=== PATIENT | female | born 1985 | race Caucasian/White ===

== ENCOUNTER → 2016-09-01 | Outpatient (CLI) | payer OTHER ==
[2016-09-01 08:58] LABS: ESTRADIOL 225.5 PG/ML; PROGESTERONE 0.4 NG/ML
== END ==
LOC: M LAB 07:32
PROVIDERS: ATTEND Obstetrics & Gynecology Reproductive Endocrinology
DX: Z31.89 Encounter for other procreative management (principal)

== ENCOUNTER → 2016-09-06 | Outpatient (REF) | payer OTHER | LOC: M LAB REF 12:39 | PROVIDERS: ATTEND Physician Assistant | DX: N39.0 Urinary tract infection, site not specified (principal) ==

== ENCOUNTER → 2016-10-02 | Outpatient (CLI) | payer OTHER ==
[2016-10-02 07:36] LABS: HCG, SERUM QUANTITATIVE < 1.0 MIU/ML
[2016-10-02 10:54] LABS: PROGESTERONE 10.5 NG/ML
[2016-10-02 11:05] LABS: ESTRADIOL 332.8 PG/ML
== END ==
LOC: M LAB 06:27
PROVIDERS: ATTEND Obstetrics & Gynecology Reproductive Endocrinology
DX: Z31.41 Encounter for fertility testing (principal)

== ENCOUNTER → 2017-01-16 | Outpatient (CLI) | payer OTHER ==
[2017-01-16 10:25] LABS: THYROXINE (T4) 8.5 UG/DL (4.5-12.0)
[2017-01-16 10:28] LABS: ESTRADIOL 67.6 PG/ML; PROGESTERONE 0.5 NG/ML; PROLACTIN 3.8 NG/ML
== END ==
LOC: M LAB 09:24
PROVIDERS: ATTEND Advanced Practice Midwife
DX: N91.1 Secondary amenorrhea (principal)

== ENCOUNTER → 2017-01-30 | Outpatient (CLI) | payer OTHER ==
[2017-01-30 08:44] LABS: LUTEINIZING HORMONE 2.4 mIU/mL
[2017-01-30 08:45] LABS: FOLLICLE STIMULATING HORMONE 2.4 mIU/mL
== END ==
LOC: M LAB 06:35
PROVIDERS: ATTEND Advanced Practice Midwife
DX: N91.1 Secondary amenorrhea (principal)

== ENCOUNTER → 2017-03-09 | Outpatient (CLI) | payer OTHER ==
[2017-03-09 14:37] LABS: BASO % 0.5 % (0.0-1.0); EOS % 0.5 % (0.0-3.0); LARGE UNSTAINED CELL # 0.1 K/mm3 (0.0-0.4); LARGE UNSTAINED CELL % 2.1 % (0.0-4.0); LYMPH # 1.8 K/mm3 (1.5-4.5); LYMPH % 28.1 % (24.0-44.0); MEAN CORPUSCULAR HEMOGLOBIN 30.8 pg (27.0-33.0); MEAN CORPUSCULAR VOLUME 90.7 fl (80.0-96.0); MONO # 0.2 K/mm3 (0.0-0.8); MONO % 3.6 % (0.0-5.0); NEUTROPHILS # 4.2 K/mm3 (1.8-7.7); NEUTROPHILS % 65.2 % (36.0-66.0); PLATELET COUNT, AUTOMATED 237 k/mm3 (150-450); RED CELL DISTRIBUTION WIDTH 13.2 % (11.5-14.5); WHITE BLOOD COUNT 6.5 K/mm3 (4.0-10.0)
[2017-03-09 15:18] LABS: HBsAg Prenatal NEGATIVE (NEGATIVE)
== END ==
LOC: M LAB 13:32
PROVIDERS: ATTEND Obstetrics & Gynecology
DX: Z34.81 Encounter for supervision of other normal pregnancy, first trimester (principal)

== ENCOUNTER → 2017-03-12 | Outpatient (CLI) | payer OTHER | LOC: M LAB 08:52 | PROVIDERS: ATTEND Advanced Practice Midwife | DX: N91.1 Secondary amenorrhea (principal) ==

== ENCOUNTER → 2017-03-22 | Outpatient (CLI) | payer OTHER | LOC: M SMT 09:36 | PROVIDERS: ATTEND Advanced Practice Midwife | DX: N96 Recurrent pregnancy loss (principal) ==

== ENCOUNTER → 2017-04-24 | Outpatient (CLI) | payer OTHER ==
[2017-04-24 15:15] LABS: FOLLICLE STIMULATING HORMONE < 0.3 mIU/mL; LUTEINIZING HORMONE < 0.1 mIU/mL
[2017-04-24 15:21] LABS: ALBUMIN 3.9 GM/DL (3.2-5.2); ALKALINE PHOSPHATASE 67 U/L (45-117); ALT/SGPT 25 U/L (12-78); ANION GAP 10 MEQ/L (8-16); AST/SGOT 12 U/L (15-37); BILIRUBIN,TOTAL 0.4 MG/DL (0.2-1.0); BLOOD UREA NITROGEN 10 MG/DL (7-18); CALCIUM LEVEL 8.8 MG/DL (8.5-10.1); CARBON DIOXIDE LEVEL 25 MEQ/L (21-32); CHLORIDE LEVEL 106 MEQ/L (98-107); CREATININE FOR GFR 0.81 MG/DL (0.55-1.02); FREE T4 0.95 NG/DL (0.76-1.46); GLOMERULAR FILTRATION RATE > 60.0 (>60); GLUCOSE, FASTING 89 MG/DL (70-105); POTASSIUM SERUM 3.6 MEQ/L (3.5-5.1); SODIUM LEVEL 141 MEQ/L (136-145); TOTAL PROTEIN 7.8 GM/DL (6.4-8.2)
[2017-04-24 15:56] LABS: BASO % 0.3 % (0.0-1.0); EOS % 0.5 % (0.0-3.0); LARGE UNSTAINED CELL # 0.2 K/mm3 (0.0-0.4); LARGE UNSTAINED CELL % 1.6 % (0.0-4.0); LYMPH # 2.3 K/mm3 (1.5-4.5); MEAN CORPUSCULAR HEMOGLOBIN 30.8 pg (27.0-33.0); MEAN CORPUSCULAR HGB CONC 34.3 g/dl (32.0-36.5); MEAN CORPUSCULAR VOLUME 89.7 fl (80.0-96.0); MONO # 0.3 K/mm3 (0.0-0.8); MONO % 3.4 % (0.0-5.0); NEUTROPHILS # 7.1 K/mm3 (1.8-7.7); NEUTROPHILS % 71.3 % (36.0-66.0); PLATELET COUNT, AUTOMATED 244 k/mm3 (150-450); RED CELL DISTRIBUTION WIDTH 12.9 % (11.5-14.5); WHITE BLOOD COUNT 9.9 K/mm3 (4.0-10.0)
[2017-04-25 11:52] LABS: THYROID PEROXIDASE ANTIBODY 28.6 U/ML (<60.0)
== END ==
LOC: M LAB 13:16
PROVIDERS: ATTEND Physician Assistant Medical
DX: R53.82 Chronic fatigue, unspecified (principal); L65.9 Nonscarring hair loss, unspecified; N92.6 Irregular menstruation, unspecified; M79.1 Myalgia

== ENCOUNTER → 2017-07-09 | Outpatient (CLI) | payer OTHER ==
[2017-07-09 10:09] LABS: PROGESTERONE 13.7 NG/ML
== END ==
LOC: M LAB 06:24
PROVIDERS: ATTEND Obstetrics & Gynecology Reproductive Endocrinology
DX: Z31.89 Encounter for other procreative management (principal)

== ENCOUNTER → 2017-07-11 | Outpatient (CLI) | payer OTHER ==
[2017-07-11 09:29] LABS: PROGESTERONE 9.2 NG/ML
[2017-07-11 09:30] LABS: ESTRADIOL 431.6 PG/ML
== END ==
LOC: M LAB 06:19
PROVIDERS: ATTEND Obstetrics & Gynecology Reproductive Endocrinology
DX: Z31.89 Encounter for other procreative management (principal)

== ENCOUNTER 2017-08-28 17:42 | Emergency (ER) | payer OTHER ==
[2017-08-28] MEDS: NS 1,000 ML IV (18:00)
[2017-08-28 18:30] LABS: BASO % 0.2 % (0.0-1.0); EOS # 0.1 10^3/uL (0.0-0.50); EOS % 0.5 % (0.0-3.0); HEMATOCRIT 41.3 % (36.0-47.0); HEMOGLOBIN 14.2 g/dl (12.0-16.0); IMMATURE GRANULOCYTE % 0.3 % (0-0); LYMPH # 2.1 10^3/uL (1.5-4.5); LYMPH % 21.2 % (24.0-44.0); MEAN CORPUSCULAR HEMOGLOBIN 30.3 pg (27.0-33.0); MEAN CORPUSCULAR HGB CONC 34.4 g/dl (32.0-36.5); MEAN CORPUSCULAR VOLUME 88.1 fl (80.0-96.0); MONO # 0.4 10^3/uL (0.0-0.8); NEUTROPHILS # 7.3 10^3/uL (1.8-7.7); NEUTROPHILS % 73.8 % (36.0-66.0); PLATELET COUNT, AUTOMATED 215 10^3/uL (150-450); RED BLOOD COUNT 4.69 10^6/uL (4.00-5.40); RED CELL DISTRIBUTION WIDTH 12.9 % (11.5-14.5); WHITE BLOOD COUNT 9.9 10^3/uL (4.0-10.0)
[2017-08-28 18:50] LABS: ANION GAP 7 MEQ/L (8-16); BLOOD UREA NITROGEN 8 MG/DL (7-18); CARBON DIOXIDE LEVEL 25 MEQ/L (21-32); CHLORIDE LEVEL 106 MEQ/L (98-107); CREATININE FOR GFR 0.62 MG/DL (0.55-1.02); GLOMERULAR FILTRATION RATE > 60.0 (>60); GLUCOSE, FASTING 111 MG/DL (70-105); POTASSIUM SERUM 3.4 MEQ/L (3.5-5.1); SODIUM LEVEL 138 MEQ/L (136-145)
[2017-08-28 19:07] LABS: HCG, SERUM QUANTITATIVE 113178 MIU/ML
[2017-08-28 19:49] LABS: KETONE, URINE AUTO RFX NEGATIVE (NEGATIVE); LEUKOCYTE ESTERASE UR AUTO RFX NEGATIVE (NEGATIVE); NITRITE, URINE AUTO RFX NEGATIVE (NEGATIVE); RBC, URINE AUTO RFX 5 /HPF (0-3); SPECIFIC GRAVITY UR AUTO RFX 1.005 (1.002-1.035); SQUAM EPITHELIAL CELL UR AURFX 0 /HPF (0-6); WBC, URINE AUTO RFX 1 /HPF (0-3)
== END 2017-08-28 20:19 | disposition home or self-care (01) ==
LOC: M ED 17:42
DX: O20.9 Hemorrhage in early pregnancy, unspecified (principal); Z3A.11 11 weeks gestation of pregnancy; O09.811 Supervision of pregnancy resulting from assisted reproductive technology, first trimester
CPT/HCPCS: 76801

== ENCOUNTER → 2017-09-07 | Outpatient (CLI) | payer OTHER ==
[2017-09-07 13:50] LABS: BASO % 0.2 % (0.0-1.0); EOS % 0.1 % (0.0-3.0); HEMATOCRIT 39.9 % (36.0-47.0); HEMOGLOBIN 13.4 g/dl (12.0-16.0); IMMATURE GRANULOCYTE % 0.4 % (0-0); LYMPH # 1.4 10^3/uL (1.5-4.5); LYMPH % 16.4 % (24.0-44.0); MEAN CORPUSCULAR HEMOGLOBIN 30.2 pg (27.0-33.0); MEAN CORPUSCULAR HGB CONC 33.6 g/dl (32.0-36.5); MEAN CORPUSCULAR VOLUME 90.1 fl (80.0-96.0); MONO # 0.3 10^3/uL (0.0-0.8); MONO % 3.8 % (0.0-5.0); NEUTROPHILS # 6.7 10^3/uL (1.8-7.7); NEUTROPHILS % 79.1 % (36.0-66.0); PLATELET COUNT, AUTOMATED 222 10^3/uL (150-450); RED BLOOD COUNT 4.43 10^6/uL (4.00-5.40); RED CELL DISTRIBUTION WIDTH 12.8 % (11.5-14.5); WHITE BLOOD COUNT 8.5 10^3/uL (4.0-10.0)
[2017-09-07 14:25] LABS: ALT/SGPT 15 U/L (12-78); AST/SGOT 10 U/L (7-37); BILIRUBIN,TOTAL 0.4 MG/DL (0.2-1.0); CREATININE FOR GFR 0.62 MG/DL (0.55-1.02); FREE T4 1.05 NG/DL (0.76-1.46); GLOMERULAR FILTRATION RATE > 60.0 (>60); LDH LACTATE DEHYDROGENASE 142 U/L (84-246); URIC ACID 3.3 MG/DL (2.6-6.0)
[2017-09-07 14:39] LABS: CREATININE,RANDOM URINE 92.5 MG/DL
[2017-09-07 14:39] LABS: TOTAL PROTEIN,RANDOM URINE 6.7 MG/DL (0.0-12.0)
[2017-09-07 15:22] LABS: CHLAMYDIA DNA AMPLIFICATION NEGATIVE (NEGATIVE); GC DNA AMPLIFICATION NEGATIVE (NEGATIVE)
[2017-09-07 17:38] LABS: RUBELLA IgG QUALITATIVE IMMUNE (IMMUNE)
[2017-09-07 18:07] LABS: HBsAg Prenatal NEGATIVE (NEGATIVE)
[2017-09-07 18:13] LABS: HEPATITIS C VIRUS ABY INDEX 0.1 INDEX (<0.8)
[2017-09-07 18:13] LABS: HIV 1&2 SCREEN CENTAUR NEGATIVE (NEGATIVE)
== END ==
LOC: M SMT 09:53
DX: Z36.89 Encounter for other specified antenatal screening (principal); Z3A.12 12 weeks gestation of pregnancy
CPT/HCPCS: 84460

== ENCOUNTER → 2017-10-18 | Outpatient (CLI) | payer OTHER | LOC: M RAD 07:36 | DX: Z36.89 Encounter for other specified antenatal screening (principal); Z3A.18 18 weeks gestation of pregnancy | CPT/HCPCS: 76811 ==

== ENCOUNTER → 2017-11-01 | Outpatient (CLI) | payer OTHER | LOC: M RAD 11:40 | DX: Z34.82 Encounter for supervision of other normal pregnancy, second trimester (principal); Z3A.20 20 weeks gestation of pregnancy ==

== ENCOUNTER → 2017-12-17 | Outpatient (CLI) | payer OTHER ==
[2017-12-17 10:21] LABS: HEMATOCRIT 38.6 % (36.0-47.0); MEAN CORPUSCULAR HEMOGLOBIN 31.4 pg (27.0-33.0); MEAN CORPUSCULAR HGB CONC 33.7 g/dl (32.0-36.5); MEAN CORPUSCULAR VOLUME 93.2 fl (80.0-96.0); PLATELET COUNT, AUTOMATED 204 10^3/uL (150-450); RED BLOOD COUNT 4.14 10^6/uL (4.00-5.40); RED CELL DISTRIBUTION WIDTH 13.8 % (11.5-14.5); WHITE BLOOD COUNT 13.4 10^3/uL (4.0-10.0)
[2017-12-17 10:56] LABS: GLUCOSE CHALLENGE TEST 1 HOUR 121 MG/DL (LESS THAN 140)
== END ==
LOC: M LAB 08:45
DX: Z34.82 Encounter for supervision of other normal pregnancy, second trimester (principal); Z3A.00 Weeks of gestation of pregnancy not specified
CPT/HCPCS: 82950

== ENCOUNTER → 2018-01-12 | Outpatient (CLI) | payer OTHER ==
[2018-01-12 16:54] LABS: HEMATOCRIT 34.4 % (36.0-47.0); HEMOGLOBIN 11.2 g/dl (12.0-15.5); MEAN CORPUSCULAR HEMOGLOBIN 31.2 pg (27.0-33.0); MEAN CORPUSCULAR HGB CONC 32.6 g/dl (32.0-36.5); MEAN CORPUSCULAR VOLUME 95.8 fl (80.0-96.0); PLATELET COUNT, AUTOMATED 175 10^3/uL (150-450); RED BLOOD COUNT 3.59 10^6/uL (4.00-5.40); RED CELL DISTRIBUTION WIDTH 13.5 % (11.5-14.5); WHITE BLOOD COUNT 10.9 10^3/uL (4.0-10.0)
[2018-01-12 17:07] LABS: ALBUMIN 2.4 GM/DL (3.2-5.2); ALBUMIN/GLOBULIN RATIO 0.67 (1.00-1.93); ALKALINE PHOSPHATASE 104 U/L (45-117); ALT/SGPT 21 U/L (12-78); ANION GAP 10 MEQ/L (8-16); AST/SGOT 17 U/L (7-37); BILIRUBIN,TOTAL 0.2 MG/DL (0.2-1.0); BLOOD UREA NITROGEN 9 MG/DL (7-18); CALCIUM LEVEL 8.3 MG/DL (8.5-10.1); CARBON DIOXIDE LEVEL 21 MEQ/L (21-32); CHLORIDE LEVEL 108 MEQ/L (98-107); CREATININE FOR GFR 0.64 MG/DL (0.55-1.30); GLOMERULAR FILTRATION RATE > 60.0 (>60); GLUCOSE, FASTING 150 MG/DL (70-100); POTASSIUM SERUM 3.9 MEQ/L (3.5-5.1); SODIUM LEVEL 139 MEQ/L (136-145); URIC ACID 3.2 MG/DL (2.6-6.0)
[2018-01-12 17:18] LABS: TOTAL PROTEIN,RANDOM URINE 31.4 MG/DL (0.0-12.0)
== END ==
LOC: M ADAMS 09:43
DX: Z36.89 Encounter for other specified antenatal screening (principal); Z3A.00 Weeks of gestation of pregnancy not specified
CPT/HCPCS: 84550

== ENCOUNTER 2018-01-15 23:07 | Inpatient (IN) | payer OTHER ==
[2018-01-16] MEDS: LR 1,000 ML IV ×3 (00:38→16:38)
[2018-01-16] MEDS: LACTATED RINGER'S 1000 ML IV (00:38)
[2018-01-16] MEDS ORDERED: ONDANSETRON 4MG/2ML VIAL (J2405) IV (00:45)
[2018-01-16 00:54] LABS: BASO % 0.2 % (0.0-1.0); EOS # 0.1 10^3/uL (0.0-0.50); EOS % 0.3 % (0.0-3.0); HEMATOCRIT 34.1 % (36.0-47.0); HEMOGLOBIN 11.7 g/dl (12.0-15.5); IMMATURE GRANULOCYTE % 0.9 % (0-3.0); LYMPH # 2.4 10^3/uL (1.5-4.5); LYMPH % 16.5 % (24.0-44.0); MEAN CORPUSCULAR HEMOGLOBIN 31.2 pg (27.0-33.0); MEAN CORPUSCULAR HGB CONC 34.3 g/dl (32.0-36.5); MEAN CORPUSCULAR VOLUME 90.9 fl (80.0-96.0); MONO # 0.9 10^3/uL (0.0-0.8); NEUTROPHILS % 76.1 % (36.0-66.0); PLATELET COUNT, AUTOMATED 174 10^3/uL (150-450); RED BLOOD COUNT 3.75 10^6/uL (4.00-5.40); RED CELL DISTRIBUTION WIDTH 13.1 % (11.5-14.5); WHITE BLOOD COUNT 14.4 10^3/uL (4.0-10.0)
[2018-01-16] MEDS: MAG Sulf (OBGYN) 20GM/500ML 20,000 MG in APPROPRIATE DILUENT 1 EA IV ×3 (00:58→20:58)
[2018-01-16] MEDS: MAG Sulf (L&D) 4 GM/100 ML 4 GM in APPROPRIATE DILUENT 1 EA IV (01:11)
[2018-01-16] MEDS: NIFEdipine 10 MG CAP PO ×2 (01:12→02:10)
[2018-01-16] MEDS: BETAMETHASONE SOLUSPAN 6MG/ML INJ 5ML (J0702) IM (01:15)
[2018-01-16] MEDS: PENICILLIN G POTASSIUM IV 5 MU in D5W MINI-BAG PLUS 100 ML IV (01:15)
[2018-01-16] MEDS: CALCIUM CARBONATE 500 MG CHEW U/D PO ×3 (02:06→13:50)
[2018-01-16] MEDS: PENICILLIN G POTASSIUM IV 2.5 MU in APPROPRIATE DILUENT 1 EA IV ×5 (05:00→21:00)
[2018-01-16] MEDS: ACETAMINOPHEN 500 MG TAB PO ×2 (08:15→14:50)
[2018-01-17] MEDS: BETAMETHASONE SOLUSPAN 6MG/ML INJ 5ML (J0702) IM (00:45)
[2018-01-17] MEDS: PENICILLIN G POTASSIUM IV 2.5 MU in APPROPRIATE DILUENT 1 EA IV ×3 (01:00→09:39)
[2018-01-17] MEDS: MAG Sulf (OBGYN) 20GM/500ML 20,000 MG in APPROPRIATE DILUENT 1 EA IV (05:47)
[2018-01-17] MEDS: CALCIUM CARBONATE 500 MG CHEW U/D PO (10:10)
== END 2018-01-17 12:50 | disposition home or self-care (01) | DRG 775 ==
LOC: M LDO 23:07 → M LDI 01-16 00:37
PROVIDERS: Advanced Practice Midwife
DX: O60.14X0 Preterm labor third trimester with preterm delivery third trimester, not applicable or unspecified (principal); Z3A.31 31 weeks gestation of pregnancy; O34.211 Maternal care for low transverse scar from previous cesarean delivery

== ENCOUNTER 2018-02-02 07:02 | Outpatient (CLI) | payer OTHER ==
[2018-02-02] MEDS: LR 1,000 ML IV ×2 (09:20→17:52)
[2018-02-02] MEDS: TERBUTALINE SULFATE 1 MG/ML VIAL (J3105) SC (12:19)
[2018-02-02 12:45] LABS: HEMATOCRIT 34.1 % (36.0-47.0); HEMOGLOBIN 11.3 g/dl (12.0-15.5); MEAN CORPUSCULAR HEMOGLOBIN 30.4 pg (27.0-33.0); MEAN CORPUSCULAR HGB CONC 33.1 g/dl (32.0-36.5); MEAN CORPUSCULAR VOLUME 91.7 fl (80.0-96.0); PLATELET COUNT, AUTOMATED 141 10^3/uL (150-450); RED BLOOD COUNT 3.72 10^6/uL (4.00-5.40); RED CELL DISTRIBUTION WIDTH 13.8 % (11.5-14.5); WHITE BLOOD COUNT 9.1 10^3/uL (4.0-10.0)
[2018-02-02 12:46] LABS: APPEARANCE, URINE CLEAR (CLEAR); BACTERIA, URINE AUTO NEGATIVE (NEGATIVE); BILIRUBIN, URINE AUTO NEGATIVE (NEGATIVE); BLOOD, URINE BLOOD NEGATIVE (NEGATIVE); COLOR, URINE STRAW (YELLOW); GLUCOSE, URINE (UA) AUTO 1+ mg/dL (NEGATIVE); KETONE, URINE AUTO NEGATIVE (NEGATIVE); LEUKOCYTE ESTERASE, URINE AUTO 1+ (NEGATIVE); NITRITE, URINE AUTO NEGATIVE (NEGATIVE); PROTEIN, URINE AUTO NEGATIVE (NEGATIVE); RBC, URINE AUTO 0 /HPF (0-3); SPECIFIC GRAVITY URINE AUTO 1.009 (1.002-1.035); SQUAMOUS EPITHELIAL CELL UR AU 2 /HPF (0-6); UROBILINOGEN, URINE AUTO 0.2 mg/dL (0.0-2.0); WBC, URINE AUTO 10 /HPF (0-3)
[2018-02-02 12:58] LABS: ALT/SGPT 20 U/L (12-78); AST/SGOT 14 U/L (7-37); BILIRUBIN,TOTAL 0.2 MG/DL (0.2-1.0); CREATININE FOR GFR 0.68 MG/DL (0.55-1.30); GLOMERULAR FILTRATION RATE > 60.0 (>60); LDH LACTATE DEHYDROGENASE 169 U/L (84-246); URIC ACID 4.2 MG/DL (2.6-6.0)
[2018-02-02] MEDS: cefTRIAXone SOD 1 GM in D5W MINI-BAG PLUS 50 ML IV (13:54)
[2018-02-02] MEDS: CALCIUM CARBONATE 500 MG CHEW U/D PO (16:30)
[2018-02-02] MEDS: raNITIdine SYRUP 150 MG/10 ML UDC PO (20:07)
[2018-02-03] MEDS: LR 1,000 ML IV (01:54)
== END 2018-02-03 08:58 | disposition home or self-care (01) ==
LOC: M LDO 07:02
DX: O47.03 False labor before 37 completed weeks of gestation, third trimester (principal); Z3A.34 34 weeks gestation of pregnancy
CPT/HCPCS: J3105

== ENCOUNTER → 2018-02-07 | Outpatient (CLI) | payer OTHER | LOC: M RAD 09:31 | DX: O13.3 Gestational [pregnancy-induced] hypertension without significant proteinuria, third trimester (principal) ==

== ENCOUNTER 2018-02-10 18:05 | Outpatient (CLI) | payer OTHER | END 2018-02-10 19:40 | disposition home or self-care (01) | LOC: M LDO 18:05 | DX: O26.893 Other specified pregnancy related conditions, third trimester (principal); N89.8 Other specified noninflammatory disorders of vagina; Z3A.35 35 weeks gestation of pregnancy | CPT/HCPCS: 59025 ==

== ENCOUNTER → 2018-02-12 | Outpatient (REF) | payer OTHER | LOC: M LAB REF 13:02 | DX: Z34.83 Encounter for supervision of other normal pregnancy, third trimester (principal); Z3A.00 Weeks of gestation of pregnancy not specified ==

== ENCOUNTER 2018-02-13 17:00 | Outpatient (CLI) | payer OTHER ==
[2018-02-13 18:14] LABS: HEMATOCRIT 31.2 % (36.0-47.0); HEMOGLOBIN 10.3 g/dl (12.0-15.5); MEAN CORPUSCULAR HEMOGLOBIN 29.1 pg (27.0-33.0); MEAN CORPUSCULAR VOLUME 88.1 fl (80.0-96.0); PLATELET COUNT, AUTOMATED 161 10^3/uL (150-450); RED BLOOD COUNT 3.54 10^6/uL (4.00-5.40); RED CELL DISTRIBUTION WIDTH 13.9 % (11.5-14.5); WHITE BLOOD COUNT 10.1 10^3/uL (4.0-10.0)
[2018-02-13 18:30] LABS: TOTAL PROTEIN,RANDOM URINE 35.6 MG/DL (0.0-12.0)
[2018-02-13 18:30] LABS: CREATININE,RANDOM URINE 91.9 MG/DL
[2018-02-13 18:42] LABS: ALT/SGPT 23 U/L (12-78); AST/SGOT 15 U/L (7-37); BILIRUBIN,TOTAL 0.1 MG/DL (0.2-1.0); CREATININE FOR GFR 0.68 MG/DL (0.55-1.30); GLOMERULAR FILTRATION RATE > 60.0 (>60); LDH LACTATE DEHYDROGENASE 178 U/L (84-246); URIC ACID 4.7 MG/DL (2.6-6.0)
== END 2018-02-13 21:05 | disposition home or self-care (01) ==
LOC: M LDO 17:00
DX: O16.3 Unspecified maternal hypertension, third trimester (principal); O12.03 Gestational edema, third trimester; O26.893 Other specified pregnancy related conditions, third trimester; R51 Headache; Z3A.35 35 weeks gestation of pregnancy
CPT/HCPCS: 76815

== ENCOUNTER 2018-02-15 13:28 | Inpatient (IN) | payer OTHER ==
[2018-02-15] MEDS ORDERED: LR 1,000 ML IV (13:48)
[2018-02-15 14:21] LABS: HEMATOCRIT 32.1 % (36.0-47.0); HEMOGLOBIN 10.6 g/dl (12.0-15.5); MEAN CORPUSCULAR HEMOGLOBIN 29.5 pg (27.0-33.0); MEAN CORPUSCULAR VOLUME 89.4 fl (80.0-96.0); PLATELET COUNT, AUTOMATED 164 10^3/uL (150-450); RED BLOOD COUNT 3.59 10^6/uL (4.00-5.40); RED CELL DISTRIBUTION WIDTH 14.2 % (11.5-14.5); WHITE BLOOD COUNT 10.7 10^3/uL (4.0-10.0)
[2018-02-15 15:00] LABS: ALT/SGPT 25 U/L (12-78); AST/SGOT 24 U/L (7-37); BILIRUBIN,TOTAL 0.1 MG/DL (0.2-1.0); CREATININE FOR GFR 0.72 MG/DL (0.55-1.30); GLOMERULAR FILTRATION RATE > 60.0 (>60); LDH LACTATE DEHYDROGENASE 264 U/L (84-246)
[2018-02-15] MEDS: OXYTOCIN DRIP 30 UNITS in APPROPRIATE DILUENT 1 EA IV ×2 (16:38→22:14)
[2018-02-15] MEDS: LACTATED RINGER'S 1000 ML IV (16:38)
[2018-02-15] MEDS ORDERED: DOCUSATE SODIUM 100 MG CAP PO (21:15)
[2018-02-15] MEDS ORDERED: ONDANSETRON 4MG/2ML VIAL (J2405) IV (21:15)
[2018-02-15] MEDS ORDERED: RHOGAM 300 MCG (1500 IU) INJ (J2790) IM (21:15)
[2018-02-15] MEDS ORDERED: PROMETHAZINE 25 MG TAB PO (21:15)
[2018-02-15] MEDS ORDERED: DIBUCAINE 1% OINTMENT 30GM TOP (21:15)
[2018-02-15] MEDS ORDERED: MEASLES,MUMPS,RUBELLA VACCINE INJ (MMR-II) (90707) SC (21:15)
[2018-02-15] MEDS: LR 1,000 ML IV (22:14)
[2018-02-15] MEDS: LIDOCAINE 1% MDV 20ML VIAL INFIL (22:14)
[2018-02-16] MEDS ORDERED: OXYTOCIN INJ 10 UNITS/ML VIAL (J2590) As Ordered (01:39)
[2018-02-16] MEDS: LR 1,000 ML IV ×2 (05:01→13:01)
[2018-02-16] MEDS: IBUPROFEN 800 MG TAB PO ×2 (06:14→18:00)
[2018-02-16] MEDS: PRENATAL VITAMINS CHEWABLE TABLET PO (08:25)
[2018-02-16] MEDS: ACETAMINOPHEN 500 MG TAB PO (13:30)
[2018-02-17] MEDS: PRENATAL VITAMINS CHEWABLE TABLET PO (10:05)
== END 2018-02-17 17:33 | disposition home or self-care (01) | DRG 775 ==
LOC: M LDI 13:28 → M OBS 23:27
PROC: 10E0XZZ Delivery of Products of Conception, External Approach (ICD-10-PCS; principal; 2018-02-15)
PROC: 0HQ9XZZ Repair Perineum Skin, External Approach (ICD-10-PCS; 2018-02-15)
DX: O14.14 Severe pre-eclampsia complicating childbirth (principal); Z37.0 Single live birth; Z3A.35 35 weeks gestation of pregnancy; O34.211 Maternal care for low transverse scar from previous cesarean delivery; O60.14X0 Preterm labor third trimester with preterm delivery third trimester, not applicable or unspecified; O70.0 First degree perineal laceration during delivery

== ENCOUNTER → 2018-02-15 | Outpatient (REF) | payer OTHER ==
[2018-02-15 13:03] LABS: URINE TOTAL PROTEIN 19.1 MG/DL (0-12)
[2018-02-15 20:10] LABS: TOTAL PROTEIN 24 HOUR URINE 429.7 MG/24HR (50-150)
[2018-02-18 09:31] LABS: TOTAL VOLUME, URINE 2250 ML
== END ==
LOC: M LAB REF 12:28
DX: O13.3 Gestational [pregnancy-induced] hypertension without significant proteinuria, third trimester (principal)

== ENCOUNTER → 2019-04-25 | Outpatient (CLI) | payer OTHER ==
[~2019-04-25] MED LIST: MAPA500T2 PO; PRENTAB55 PO; PROC10CA PO; RANI-356 PO; TUMS500C PO; TYLE500T78 PO
--- NOTE | 2019-04-25 14:23 | REP ---
Pelvic ultrasound for abnormal bleeding: The study is performed with transabdominal and endovaginal ultrasound assessment. The bladder is adequately distended. The uterus is anteverted and normal size measuring 9.2 x 3.7 x 5.0 cm. The myometrium is unremarkable. The endometrium is not thickened measuring 6.2 mm. Right ovary: The right ovary measures 2.0 x 1.1 x 2.0 cm and is normal size. There is no dominant mass or cyst. Left ovary: The left ovary measures 1.7 x 1.5 x 1.6 cm and is normal size. There is no dominant mass or cyst. There is no free fluid in the pelvis. Impression: Essentially negative pelvic ultrasound. Electronically Signed by Roderick Garcia MD 04/25/2019 02:15 P
== END ==
LOC: M RAD 10:44
PROVIDERS: ATTEND Obstetrics & Gynecology
DX: N93.9 Abnormal uterine and vaginal bleeding, unspecified (principal)

== ENCOUNTER → 2019-05-06 | Outpatient (REF) | payer OTHER ==
[2019-05-09 14:42] LABS: HPV HYBRID CAPTURE II Negative (Negative)
== END ==
LOC: M LAB REF 14:54
PROVIDERS: ATTEND Obstetrics & Gynecology
DX: Z12.4 Encounter for screening for malignant neoplasm of cervix (principal)
CPT/HCPCS: 87624; G0123

== ENCOUNTER → 2019-06-07 | Outpatient (CLI) | payer OTHER ==
[2019-06-07 10:47] LABS: BASO % 0.2 % (0.0-1.0); EOS # 0.1 10^3/uL (0.0-0.5); EOS % 1.5 % (0.0-3.0); HEMATOCRIT 42.4 % (36.0-47.0); HEMOGLOBIN 14.1 g/dl (12.0-15.5); LYMPH # 1.6 10^3/uL (1.5-5.0); LYMPH % 33.7 % (24.0-44.0); MEAN CORPUSCULAR HEMOGLOBIN 29.3 pg (27.0-33.0); MEAN CORPUSCULAR HGB CONC 33.3 g/dl (32.0-36.5); MEAN CORPUSCULAR VOLUME 88.1 fl (80.0-96.0); MONO # 0.3 10^3/uL (0.0-0.8); MONO % 5.5 % (0.0-5.0); NEUTROPHILS # 2.8 10^3/uL (1.5-8.5); NEUTROPHILS % 58.9 % (36.0-66.0); PLATELET COUNT, AUTOMATED 195 10^3/uL (150-450); RED BLOOD COUNT 4.81 10^6/uL (4.00-5.40); WHITE BLOOD COUNT 4.8 10^3/uL (4.0-10.0)
[2019-06-07 11:14] LABS: BLOOD UREA NITROGEN 9 MG/DL (7-18); CALCIUM LEVEL 9.1 MG/DL (8.5-10.1); CARBON DIOXIDE LEVEL 27 MEQ/L (21-32); CHLORIDE LEVEL 107 MEQ/L (98-107); CREATININE FOR GFR 0.74 MG/DL (0.55-1.30); FREE T4 0.89 NG/DL (0.76-1.46); GLOMERULAR FILTRATION RATE > 60.0 (>60); GLUCOSE, FASTING 80 MG/DL (70-100); MAGNESIUM LEVEL 1.8 MG/DL (1.8-2.4); SODIUM LEVEL 141 MEQ/L (136-145)
== END ==
LOC: M LAB 10:13
PROVIDERS: ATTEND Physician Assistant
DX: R00.2 Palpitations (principal); Z83.2 Family history of diseases of the blood and blood-forming organs and certain disorders involving the immune mechanism

== ENCOUNTER → 2019-06-23 | Outpatient (REF) | payer OTHER | LOC: M LAB REF 12:54 | PROVIDERS: ATTEND Obstetrics & Gynecology | DX: N85.00 Endometrial hyperplasia, unspecified (principal) ==

== ENCOUNTER → 2020-01-23 | Outpatient (REF) | payer OTHER ==
[~2020-01-23] MED LIST changes: -RANI-356 PO; +RANI-397 PO
[2020-01-23 13:00] LABS: HEMATOCRIT 40.9 % (36.0-47.0); HEMOGLOBIN 13.8 g/dl (12.0-15.5); MEAN CORPUSCULAR HEMOGLOBIN 30.9 pg (27.0-33.0); MEAN CORPUSCULAR HGB CONC 33.7 g/dl (32.0-36.5); MEAN CORPUSCULAR VOLUME 91.5 fl (80.0-96.0); PLATELET COUNT, AUTOMATED 226 10^3/uL (150-450); RED BLOOD COUNT 4.47 10^6/uL (4.00-5.40); WHITE BLOOD COUNT 10.4 10^3/uL (4.0-10.0)
[2020-01-23 13:43] LABS: ALT/SGPT 44 U/L (12-78); BILIRUBIN,TOTAL 0.5 MG/DL (0.2-1.0); CREATININE FOR GFR 0.74 MG/DL (0.55-1.30); GLOMERULAR FILTRATION RATE > 60.0 (>60); LDH LACTATE DEHYDROGENASE 144 U/L (84-246); URIC ACID 3.2 MG/DL (2.6-6.0)
[2020-01-23 14:24] LABS: HEPATITIS C VIRUS ABY INDEX 0.1 INDEX (<0.8)
[2020-01-23 14:25] LABS: HIV 1&2 SCREEN CENTAUR NEGATIVE (NEGATIVE)
[2020-01-23 14:36] LABS: TOTAL PROTEIN,RANDOM URINE 10.1 MG/DL (0.0-12.0)
[2020-01-23 15:13] LABS: CHLAMYDIA DNA AMPLIFICATION NEGATIVE (NEGATIVE); GC DNA AMPLIFICATION NEGATIVE (NEGATIVE)
== END ==
LOC: M PLALAB 10:35
PROVIDERS: ATTEND Advanced Practice Midwife
DX: O09.291 Supervision of pregnancy with other poor reproductive or obstetric history, first trimester (principal)

== ENCOUNTER → 2020-02-19 | Outpatient (CLI) | payer OTHER ==
[~2020-02-19] MED LIST changes: +NIFE10CA2 PO; +PROP60TA14 PO; +PROZ40CA PO
== END ==
LOC: M PLALAB 12:33
PROVIDERS: ATTEND Advanced Practice Midwife
DX: O09.521 Supervision of elderly multigravida, first trimester (principal)

== ENCOUNTER → 2020-03-01 | Outpatient (CLI) | payer OTHER ==
[~2020-03-01] MED LIST changes: -NIFE10CA2 PO; -PROP60TA14 PO; -PROZ40CA PO
--- NOTE | 2020-03-01 10:12 | REP ---
Left lower extremity Duplex Doppler venous ultrasound: Real time compression and duplex Doppler interrogation of the left lower extremity deep venous system is performed. The left common femoral, superficial femoral and popliteal veins are fully compressible with transducer pressure and demonstrate normal spontaneous and phasic flow, without evidence of deep venous thrombosis. Impression: No evidence of deep venous thrombosis of the left lower extremity femoral popliteal venous system. Electronically Signed by Roderick Burgos MD 03/01/2020 10:04 A
== END ==
LOC: M RAD 09:37
PROVIDERS: ATTEND Physician Assistant
DX: O26.899 Other specified pregnancy related conditions, unspecified trimester (principal); M79.605 Pain in left leg

== ENCOUNTER → 2020-04-02 | Outpatient (CLI) | payer OTHER ==
[~2020-04-02] MED LIST changes: +NIFE10CA2 PO; +PROP60TA14 PO; +PROZ40CA PO
--- NOTE | 2020-05-21 11:29 | REP ---
OBSTETRIC SONOGRAPHY HISTORY: Supervision of for anatomy at 18 weeks. Estimated date of delivery (RAMSES) 08/31/2020. This report was delayed due to a protracted episode of network disruption experienced by this facility. FINDINGS: Scanning through the gravid uterus demonstrates a viable single intrauterine gestation in a transverse head to the maternal right lie. Placenta is posterior grade 1 without evidence of placenta previa or abruption. Amniotic fluid is subjectively normal. Closed cervical length is measured at 3.2 cm transabdominally. A 1.7 cm cystic area is seen in the maternal right ovary. heart rate is recorded at 142 beats per minute. No anomaly is seen. Right ventricular cardiac outflow tract and facial profile are less than optimally seen due to position. The following anatomic structures are identified and felt to be unremarkable: Cisterna magna, cavum septum pellucidum, thalami, spine, left-sided stomach, kidneys and bladder, four chamber heart with left ventricular outflow tract view, three-vessel cord, abdominal wall cord insertion, face and lips, profile, upper and lower extremities. BIOMETRICAL ETRY CHART: BPD 40.7 mm 18 weeks 3 days Head Circumference 159 mm 18 weeks 6 days Abdominal Circumference 129 mm 18 weeks 4 days Femur Length 29 mm 19 weeks 1 day Humeral Length 27.6 mm 18 weeks 6 days Estimated Weight 254 g 64th percentile IMPRESSION: Viable single intrauterine gestation at 18 weeks 6 days. Estimated date of delivery (RAMSES) by todays sonography 08/28/2020. MTDD
== END ==
LOC: M WHC 17:14
PROVIDERS: ATTEND Nurse Practitioner Women's Health
DX: Z34.82 Encounter for supervision of other normal pregnancy, second trimester (principal); Z3A.18 18 weeks gestation of pregnancy

== ENCOUNTER → 2020-04-22 | Outpatient (CLI) | payer OTHER ==
--- NOTE | 2020-05-03 13:24 | REP ---
FOLLOW-UP OBSTETRICAL ULTRASOUND CLINICAL: Anatomical follow-up evaluation. COMPARISON: 04/02/2020. TECHNIQUE: Transabdominal obstetrical ultrasound with color Doppler evaluation. FINDINGS: Ultrasound demonstrates a single live intrauterine in cephalic presentation. Cervix measures 3 cm in length. Placenta noted posteriorly, grade 1, and without evidence for placenta previa or abruption. Amniotic fluid volume is within normal limits. Gestational age by current biometrical measurements 21 weeks 5 days with estimated date of delivery 08/28/2020. Estimated weight 440 grams (65th percentile). heart rate equals 147 beats per minute. Anatomic assessment demonstrates normal stomach, kidneys, bladder, right cardiac ventricular outflow tract, three-vessel cord/cord insertion, and facial features. IMPRESSION: Single live intrauterine in cephalic presentation demonstrating appropriate growth. In conjunction with prior examination, anatomic assessment is complete and normal. MTDD
== END ==
LOC: M WHC 08:58
PROVIDERS: ATTEND Advanced Practice Midwife
DX: Z34.82 Encounter for supervision of other normal pregnancy, second trimester (principal)

== ENCOUNTER → 2020-06-07 | Outpatient (CLI) | payer OTHER ==
[2020-06-07 11:02] LABS: BASO % 0.2 % (0.0-1.0); EOS % 0.4 % (0.0-3.0); HEMATOCRIT 36.4 % (36.0-47.0); HEMOGLOBIN 11.8 g/dl (12.0-15.5); LYMPH # 1.5 10^3/uL (1.5-5.0); LYMPH % 13.2 % (24.0-44.0); MEAN CORPUSCULAR HEMOGLOBIN 31.1 pg (27.0-33.0); MEAN CORPUSCULAR HGB CONC 32.4 g/dl (32.0-36.5); MONO # 0.4 10^3/uL (0.0-0.8); MONO % 3.4 % (0.0-5.0); NEUTROPHILS % 81.4 % (36.0-66.0); PLATELET COUNT, AUTOMATED 166 10^3/uL (150-450); RED BLOOD COUNT 3.79 10^6/uL (4.00-5.40); WHITE BLOOD COUNT 11.1 10^3/uL (4.0-10.0)
== END ==
LOC: M LAB 08:37
PROVIDERS: ATTEND Advanced Practice Midwife
DX: Z34.82 Encounter for supervision of other normal pregnancy, second trimester (principal); Z3A.00 Weeks of gestation of pregnancy not specified

== ENCOUNTER 2020-06-30 16:25 | Outpatient (CLI) | payer OTHER ==
[~2020-06-30] VITALS: Ht 172.7 cm; Wt 119.3 kg
[~2020-06-30 16:25] MED LIST changes: -NIFE10CA2 PO; -PROP60TA14 PO; -PROZ40CA PO
[2020-06-30 16:38] VITALS: BP 137/74
[2020-06-30] MEDS ORDERED: PROZ40CA PO (16:44)
[2020-06-30] MEDS ORDERED: TUMS500C PO (16:44)
[2020-06-30] MEDS ORDERED: PROP60TA14 PO (16:44)
--- NOTE | 2020-06-30 17:09 | IPNPDOC ---
Text Note Date of Service The patient was seen on 06/30/20. NOTE Subjective: Charles is a 35 [id number] who is a at 31.1 weeks gestation with an RAMSES of 08/31/20 . She initiated care in her first trimester of care with [facility]. Her has been complicated by a history of a prior section, AMA, history of delivery, and a history of preeclampsia. Charles has been using IM Julianna injections weekly since 16-17 weeks gestation. She is using a beta-penelope for maternal tachycardia and taking a ASA 81 mg for her history of preeclampsia. She presents to L&D after being seen in the office with complaints of contractions that started at 11:30 this morning. She reports them as abdominal tightening. She also stated that they have not increased in intensity. She reports active movement. She denies leaking of fluid, bloody show, or vaginal bleeding. OB history: 1. 11/2010: delivery at 34 weeks gestation vis section for breech presentation with weight 6 lbs 11 oz. 2. 06/2014: at 36 weeks in labor weighting 6 lbs 12 oz. 3. 01/2018: at 35.5 weeks gestation induced for preeclampsia with weighting 7 lbs 6 oz. SAB 2014, 2015, 2017 Objective: VS: see below. FHR: 120, moderate variability, positive accelerations, no decelerations. Contractions: every 2-17 minutes. General: A+Ox3 Respiratory: regular rate with no use of accessory muscles Abdomen: gravid and non tender to touch. Abdomen is very mild with contraction. Perineum: SSE: normal vaginal discharge noted. Cervix posterior and appears fluffy without fluid leaking from os and no bleeding. SVE: /ballatable, cephalic presentation, no bloody show noted. Repeat 2 hours later: no change except for trace amount of pink discharge noted on glove. Assessment: IUP at 31.1 weeks gestation, rule out labor, Category I FHR tracing. Plan: Per consult with Dr. Elizalde a cervical length ultrasound is to be done. See results below. Plan is for betamethasone now and again in 48 hours. Continue to monitor. If any signs of labor (regular contractions or painful contractions with cervical change) we will start Magnesium and antibiotics. GBS obtained. Consider consultation with Dex if there are any changes. VS,Fishbone, I+O VS, Fishbone, I+O Vital Signs Date Time Temp Pulse Resp B/P (MAP) Pulse Ox O2 Delivery O2 Flow Rate FiO2 06/30/20 16:38 97.1 91 18 137/74 (95) NAME: CHARLES STARKS DATE OF : 1985 BUSINESS NUMBER: [id number] AGE: 35 SEX: F REPORT #: [id number] ROOM: [facility] TECHNOLOGIST: [facility] DOCTOR: PATRICA MARCIAL CNM Ordered for Date&Time: 06/30/20 1725 cc: [~ rep ct ivnm] Service Date&Time: 06/30/20 1801 EXAMINATION REQUESTED: TRANSVAGINAL US REASON FOR PATIENT VISIT: LABOR CHECK AT 31 WEEKS REASON FOR EXAMINATION: cervical length-virgilio PROCEDURE INFORMATION: Exam: US , Limited and US , Transvaginal Exam date and time: 06/30/2020 6:01 PM Age: 35 years old Clinical indication: Pain; Other: Contractions; Gestational age or lmp: 31; ; Additional info: Cervical length-virgilio TECHNIQUE: Imaging protocol: Real-time ultrasound of the maternal uterus with image documentation. Transvaginal imaging was used for better evaluation of the fetus, adnexa, and/or cervix. Exam focused on the clinical indication. COMPARISON: US OBS FOLLOW UP OR REPEAT 04/22/2020 9:06 AM FINDINGS: Gestation: Single intrauterine gestation. heart rate: 127 bpm. Presentation: Cephalic presentation. Placenta: Placenta fundal, grade 2 without demonstrated previa. MATERNAL: Cervix: Cervix closed, 2.0 cm in length transvaginally. IMPRESSION: 1. Single viable intrauterine gestation. 2. Cervix closed, 2.0 cm in length. Electronically signed by: Obed Barron On 06/30/2020 18:11:17 PM PATRICA MARCIAL CNM Jun 30, 2020 17:09
[2020-06-30 17:57] VITALS: BP 128/71
--- NOTE | 2020-06-30 18:12 | REPVR ---
PROCEDURE INFORMATION: Exam: US , Limited and US , Transvaginal Exam date and time: 06/30/2020 6:01 PM Age: 35 years old Clinical indication: Pain; Other: Contractions; Gestational age or lmp: 31; ; Additional info: Cervical length-virgilio TECHNIQUE: Imaging protocol: Real-time ultrasound of the maternal uterus with image documentation. Transvaginal imaging was used for better evaluation of the fetus, adnexa, and/or cervix. Exam focused on the clinical indication. COMPARISON: US OBS FOLLOW UP OR REPEAT 04/22/2020 9:06 AM FINDINGS: Gestation: Single intrauterine gestation. heart rate: 127 bpm. Presentation: Cephalic presentation. Placenta: Placenta fundal, grade 2 without demonstrated previa. MATERNAL: Cervix: Cervix closed, 2.0 cm in length transvaginally. IMPRESSION: 1. Single viable intrauterine gestation. 2. Cervix closed, 2.0 cm in length. Electronically signed by: Obed Barron On 06/30/2020 18:11:17 PM
[2020-06-30] MEDS: BETAMETHASONE SOLUSPAN 6MG/ML 5ML VIAL (J0702 PER 3MG) IM SCH (19:27)
[2020-06-30 21:52] VITALS: BP 132/69
[2020-07-01] VITALS (20 sets, daily range): BP systolic 119–144; BP diastolic 56–78
[2020-07-01] MEDS ORDERED: MAGNESIUM *L&D* 4GM/100ML BAG (40MG/ML) IV ONE (03:45)
[2020-07-01] MEDS ORDERED: TERBUTALINE SULFATE 1 MG/ML VIAL (J3105) SC ONE (03:45)
[2020-07-01] MEDS ORDERED: NIFEdipine 10 MG CAP PO ONE (03:45)
--- NOTE | 2020-07-01 03:48 | IPNPDOC ---
Text Note Date of Service The patient was seen on 07/01/20. NOTE Subjective: Patient reports she feels her contractions again. Reports they are slightly stronger and regular although she has to urinate. Objective: VS stable-see below. FHR 120, moderate variability, positive accelerations, no decelerations. Contractions every 2 to 5 minutes. Abdomen palpates mild with contractions. Assessment: IUP at 31.2 weeks gestation, contractions/ labor Plan: Dr. Elizalde notified of changes. GBS collected. Instructed to give SC terbutaline, start loading dose of Magnesium followed by 2 grams per hour and Nifedipine 20 mg PO now followed by 10 mg every 6 hours. If contractions continue despite this we will consider transport to [place]. Will continue to monitor. VS,Fishbone, I+O VS, Fishbone, I+O Vital Signs Date Time Temp Pulse Resp B/P (MAP) Pulse Ox O2 Delivery O2 Flow Rate FiO2 06/30/20 17:57 85 128/71 (90) 06/30/20 16:38 97.1 18 PATRICA MARCIAL CNM Jul 01, 2020 03:48
[2020-07-01 04:11] LABS: HEMATOCRIT 35.9 % (36.0-47.0); HEMOGLOBIN 11.5 g/dl (12.0-15.5); MEAN CORPUSCULAR HEMOGLOBIN 29.8 pg (27.0-33.0); PLATELET COUNT, AUTOMATED 169 10^3/uL (150-450); RED BLOOD COUNT 3.86 10^6/uL (4.00-5.40); WHITE BLOOD COUNT 15.6 10^3/uL (4.0-10.0)
[2020-07-01] MEDS: MAG Sulf (OBGYN) 20GM/500ML 20,000 MG in IV 1 EA IV SCH ×2 (04:30→14:38)
[2020-07-01] MEDS: LR 1,000 ML IV SCH ×2 (04:31→14:38)
[2020-07-01] MEDS ORDERED: PROPRANOLOL 20 MG TAB PO SCH (09:00)
--- NOTE | 2020-07-01 09:25 | IPNPDOC ---
Obstetrical Progress Note Date of Service Jul 01, 2020 Subjective c/o small gush of fluid per vagina when turning over in bed. She had another episode shortly after that. Objective Vital Signs Date Time Temp Pulse Resp B/P (MAP) Pulse Ox O2 Delivery O2 Flow Rate FiO2 07/01/20 09:13 100 137/72 07/01/20 07:20 97.6 18 Assessment Variability: Moderate Accelerations: Positive Heart Rate Tracing: Category I Tocometer Contractions: Yes Frequency: irregular Duration: less than 60 seconds Strength: palpated as mild Assessment and Plan Status: Reassuring Additional Comments SSE: negative fern, negative nitrazine, negative pool 35 yo at 31 1/7 weeks gestation with labor, advanced cervical dilation No definitive evidence of ROM at this time. Finish BMZ course. On Nifedipine Magnesium sulfate treatment for neuroprotection If she is subsequently determined to have SROM, would consider transfer to [facility] for prematurity ANTHONY HOFF MD Jul 01, 2020 09:25
[2020-07-01] MEDS: NIFEdipine 10 MG CAP PO SCH ×3 (10:07→22:21)
[2020-07-01] MEDS ORDERED: ACETAMINOPHEN 500 MG TAB PO PRN (10:45)
--- NOTE | 2020-07-01 16:04 | REP ---
INDICATION: 31 weeks, labor. COMPARISON: 06/30/2020. TECHNIQUE: Bowel visible profile OB ultrasound including umbilical artery Doppler. Transabdominal probe only. FINDINGS: Again noted is a single intrauterine gestation in cephalic presentation. There is a posterior grade 2 fundal placenta without previa or abruption. The amniotic fluid volume is visually normal with an index of 14.9. heart activity noted at 134. Cervix is closed and measures 3.2 cm. Mid course of the umbilical artery shows an S/D ratio of 2.42 and resistive index 0.59 on Doppler evaluation. Biophysical profile: Breathing 2 Tone 2 Movement 2 AFV 2 IMPRESSION: Single intrauterine gestation in cephalic position with fundal grade 2 placenta without previa or abruption. Normal Doppler of the mid cord umbilical arteries with SD ratio 2.42, normal, and forward diastolic flow throughout. Resistive index 0.59. Cervix 3.2 cm long and closed. DARIN 14.9 and normal. Bowel visible profile: 04/03 <Electronically signed by Jamel Ann > 07/01/20 1600
[2020-07-01] MEDS: BETAMETHASONE SOLUSPAN 6MG/ML 5ML VIAL (J0702 PER 3MG) IM SCH (19:19)
[2020-07-01] MEDS ORDERED: MAPA500T2 PO (22:43)
[2020-07-02 04:14] VITALS: BP 168/85
[2020-07-02] MEDS: NIFEdipine 10 MG CAP PO SCH (04:14)
[2020-07-02 07:18] VITALS: BP 183/82
[2020-07-02 07:46] VITALS: BP 127/66
[2020-07-02 08:27] VITALS: BP 137/73
[2020-07-02] MEDS ORDERED: NIFE10CA2 PO (08:39)
== END 2020-07-02 09:45 | disposition home or self-care (01) ==
LOC: M LDO 16:25
PROVIDERS: ATTEND Advanced Practice Midwife
DX: O60.03 Preterm labor without delivery, third trimester (principal); O99.413 Diseases of the circulatory system complicating pregnancy, third trimester; R00.0 Tachycardia, unspecified; Z91.048 Other nonmedicinal substance allergy status; Z98.891 History of uterine scar from previous surgery; Z3A.31 31 weeks gestation of pregnancy; Z79.82 Long term (current) use of aspirin
CPT/HCPCS: 59025; 76815; 76817; 76819; 76820; 85027; 86850; 86900; 86901; 87081; 96365; 96366; 96372; 96375; G0378; G0463; J0702; J3105; J3475

== ENCOUNTER 2020-07-10 11:17 | Outpatient (CLI) | payer OTHER ==
[~2020-07-10] VITALS: Ht 172.7 cm; Wt 115.0 kg
[~2020-07-10 11:17] MED LIST changes: +NIFE10CA2 PO; +PROP60TA14 PO; +PROZ40CA PO
[2020-07-10 11:36] VITALS: BP 140/67
--- NOTE | 2020-07-10 12:58 | IPNPDOC ---
Text Note Date of Service The patient was seen on 07/10/20. NOTE Triage Note Mirtha is a 35yo with SIUP at 32w4d presenting for CC of persistent ctx x 24hr, getting stronger. Has Nifedipine Rx'd for discomfort related to ctx, has only taken 1 dose. She was evaluated 07/01 for PTL, admitted and made steroid complete, received IV abx and IV MgSO4, GBS negative. At that time she was 4/75/-3 and made no further change, so discharged home. She has hx of 3 prior PTD between 34-36wk. No vaginal bleeding, loss of fluid. Good movement. Vitals: first bp mild range repeat normotensive General: resting comfortably in bed Abdomen: soft, gravid, NTTP Extremities: no edema of BLE SCE: 4/50/-3, posterior and head ballotable Cat I FHRT and no ctx pattern Assessment: Mirtha is a 35yo with SIUP at 32w4d with NO e/o PTL. SCE unchanged from 1 week prior and no ctx pattern noted. BP normal on repeat. Plan: -Discharge to home -Keep next routine OB visit in office -Modified bed rest and specifically discussed vaginal rest -Encouraged hydration, back and neck massage, warm shower -Discussed return precautions Dr. Jessica Elizalde MD VS,Nery, I+O VSNery I+O Vital Signs Date Time Temp Pulse Resp B/P (MAP) Pulse Ox O2 Delivery O2 Flow Rate FiO2 07/10/20 11:36 97.8 109 16 140/67 (91) Jessica Elizalde MD Jul 10, 2020 12:58
== END 2020-07-10 13:00 | disposition home or self-care (01) ==
LOC: M LDO 11:17
PROVIDERS: ATTEND Obstetrics & Gynecology
DX: O60.03 Preterm labor without delivery, third trimester (principal)
CPT/HCPCS: 59025; G0378; G0463

== ENCOUNTER 2020-07-24 17:30 | Outpatient (CLI) | payer OTHER ==
[~2020-07-24] VITALS: Ht 172.7 cm; Wt 118.6 kg
[2020-07-24] MEDS ORDERED: TERBUTALINE SULFATE 1 MG/ML VIAL (J3105) SC ONE (20:45)
--- NOTE | 2020-08-15 12:10 | IPNPDOC ---
Text Note Date of Service The patient was seen on 07/25/20. Mirtha is a 35yo with SIUP presenting for CC of persistent ctx x 24hr, getting stronger. Has Nifedipine . She was evaluated 07/01 for PTL, admitted and made steroid complete, received IV abx and IV MgSO4, GBS negative. At that time she was 4/50/-3 and made no further change, so discharged home. She has hx of 3 prior PTD between 34-36wk. No vaginal bleeding, loss of fluid. Good movement. vss, AF General: resting comfortably in bed Abdomen: soft, gravid, NTTP Extremities: no edema of BLE SCE: 4/50/-3, posterior and head ballotable, unchanged after 3hrs. Cat I FHRT and irreg ctx pattern -fluid hydration and terbutaline provided for symptomatic relief from contraction Assessment: Mirtha is a 35yo with SIUP at 32w4d with NO e/o PTL. SCE unchanged from 2 week prior and no ctx pattern noted. Plan: -Discharge to home -Keep next routine OB visit in office MD TABBY Nova KENYA MD. Aug 15, 2020 12:10
== END 2020-07-24 22:08 | disposition home or self-care (01) ==
LOC: M LDO 17:30
PROVIDERS: ATTEND Obstetrics & Gynecology
DX: O09.523 Supervision of elderly multigravida, third trimester (principal); O09.213 Supervision of pregnancy with history of pre-term labor, third trimester; O47.03 False labor before 37 completed weeks of gestation, third trimester; Z3A.32 32 weeks gestation of pregnancy
CPT/HCPCS: 59025; 96372; G0378; G0463; J3105

== ENCOUNTER → 2020-07-30 | Outpatient (REF) | payer OTHER ==
[2020-07-30 16:17] LABS: HEMATOCRIT 36.2 % (36.0-47.0); HEMOGLOBIN 11.6 g/dl (12.0-15.5); MEAN CORPUSCULAR HEMOGLOBIN 29.6 pg (27.0-33.0); MEAN CORPUSCULAR VOLUME 92.3 fl (80.0-96.0); PLATELET COUNT, AUTOMATED 189 10^3/uL (150-450); RED BLOOD COUNT 3.92 10^6/uL (4.00-5.40); WHITE BLOOD COUNT 12.5 10^3/uL (4.0-10.0)
[2020-07-30 16:46] LABS: CREATININE,RANDOM URINE 84.2 MG/DL; TOTAL PROTEIN,RANDOM URINE 10.9 MG/DL (0.0-12.0)
[2020-07-30 16:48] LABS: ALT/SGPT 15 U/L (12-78); BILIRUBIN,TOTAL 0.4 MG/DL (0.2-1.0); GLOMERULAR FILTRATION RATE > 60.0 (>60); LDH LACTATE DEHYDROGENASE 169 U/L (84-246); URIC ACID 3.2 MG/DL (2.6-6.0)
== END ==
LOC: M PLALAB 13:59
PROVIDERS: ATTEND Advanced Practice Midwife
DX: O16.3 Unspecified maternal hypertension, third trimester (principal)

== ENCOUNTER 2020-08-12 22:48 | Inpatient (IN) | payer OTHER ==
[~2020-08-12] VITALS: Ht 175.3 cm; Wt 119.2 kg
[2020-08-12 23:08] VITALS: BP 134/72
[2020-08-12] MEDS ORDERED: MAPA500T2 PO (23:27)
[2020-08-12] MEDS ORDERED: PROP60TA14 PO (23:27)
[2020-08-12] MEDS ORDERED: LR 1,000 ML IV SCH (23:58)
[2020-08-12] MEDS ORDERED: LACTATED RINGER'S 1000 ML IV STA (23:58)
[2020-08-13] VITALS (25 sets, daily range): BP systolic 86–151; BP diastolic 49–115
[2020-08-13 00:41] LABS: HEMATOCRIT 33.3 % (36.0-47.0); HEMOGLOBIN 10.8 g/dl (12.0-15.5); MEAN CORPUSCULAR HEMOGLOBIN 29.3 pg (27.0-33.0); MEAN CORPUSCULAR HGB CONC 32.4 g/dl (32.0-36.5); MEAN CORPUSCULAR VOLUME 90.2 fl (80.0-96.0); PLATELET COUNT, AUTOMATED 150 10^3/uL (150-450); RED BLOOD COUNT 3.69 10^6/uL (4.00-5.40)
[2020-08-13] MEDS ORDERED: FENTANYL 2MCG/ML ROPIVACAINE 0.2% IN 0.9% NACL 100ML IVBAG As Ordered ONE (00:41)
[2020-08-13] MEDS ORDERED: EPIDURAL COMMENT XX SCH (02:30)
[2020-08-13] MEDS ORDERED: ePHEDrine SULFATE 25 MG/5 ML(5MG/ML) SYRINGE IV PRN (02:30)
[2020-08-13] MEDS ORDERED: REFRIGERATOR IV KEYS XX PRN (02:30)
[2020-08-13] MEDS ORDERED: FENTANYL/ROPIVACAINE/NACL BAG 100 ML EPIDURAL SCH (02:30)
[2020-08-13] MEDS ORDERED: EPIDURAL/PCA KEYS XX PRN (02:30)
[2020-08-13] MEDS ORDERED: NALOXONE INJ 0.4MG/1ML VIAL (J2310 PER 1MG) IV PRN (02:30)
[2020-08-13] MEDS ORDERED: ONDANSETRON 4MG/2ML VIAL IV PRN (02:30)
[2020-08-13] MEDS ORDERED: diphenhydrAMINE 50MG/ML VIAL (J1200) IV PRN (02:30)
[2020-08-13] MEDS ORDERED: LACTATED RINGER'S 1000 ML IV PRN (02:30)
[2020-08-13] MEDS ORDERED: OXYTOCIN 30 UNITS IN 0.9% NaCl 500ML IV BAG (J2590) As Ordered ONE (03:11)
[2020-08-13] MEDS ORDERED: OXYTOCIN DRIP 30 UNITS in IV 1 EA IV SCH (03:36)
[2020-08-13] MEDS ORDERED: DOCUSATE SODIUM 100MG CAPSULE PO PRN (03:45)
[2020-08-13] MEDS ORDERED: ACETAMINOPHEN 500 MG TAB PO PRN (03:45)
[2020-08-13] MEDS ORDERED: MEASLES,MUMPS,RUBELLA VACCINE INJ (MMR-II) (90707) SC SCH (03:45)
[2020-08-13] MEDS ORDERED: RHOGAM 300 MCG (1500 IU) INJ (J2790) IM SCH (03:45)
[2020-08-13] MEDS ORDERED: ACETAMINOPHEN TAB 650MG DOSE (2X325MG) PO PRN (03:45)
[2020-08-13] MEDS ORDERED: IBUPROFEN 600MG TAB PO PRN (03:45)
[2020-08-13] MEDS ORDERED: METHYLERGONOVINE MALEATE 0.2 MG/ML VIAL (J2210) IM ONE (03:45)
[2020-08-13] MEDS ORDERED: BENZOCAINE 20% HEMORRHOIDAL OINTMENT 28GM TUBE TOP PRN (03:45)
--- NOTE | 2020-08-13 04:06 | HPEPDOC ---
Obstetrical History & Physical General Date of Admission Aug 12, 2020 at 23:48 History of Present Illness Mirtha is a 35yo with SIUP at 37w3d by 8wk u/s presenting with regular, painful ctx 2-3min apart for 2 hours. No LOF, has had small spotting, good movement. No f/c/n/v/CP/SOB. Chief Complaint: Contractions, term Information Provided By: Patient Care Care: Good Care Dating Final EDC: Aug 31, 2020 Final EDC by: 1st trimester (US) Antepartum Course Diagnos(e)s AMA, history of pre-term labor/deliveries at 34/35/36 weeks, history of prior section followed by x2 (desiring TOLAC), symptomatic ctx throughout taking prn nifedipine, history of pre-eclampsia in prior (taking ASA 81mg), UTI first trimester, threatened PTL this (made beta complete 07/01), failed 1hr glucola but passed 3hr GTT, anemia, plt 150 Past Medical History Past Obstetrical History : Past Obstetrical History: Multigravida (11/2010 34wk [id number] M PLTCS for breech PTL, 06/2014 36wk [id number] M , sab , 01/2018 35wk 7lb6oz F . 1 complicated by pre-E.) Past Medical History Medical History obesity, microadenoma, PCOS, occasional palpitations Surgical History: section, Gallbladder, Other (wrist surgery) Family History Significant Family History: No pertinent family hx Social History Marital Status: Family situation: Spouse/partner home Psychosocial History: No pertinent psych hx * Smoker: non-smoker Alcohol: Denies Drugs: denies Imunizations Tdap status: current Influenza Status: current Allergies Coded Allergies: TAPE (Verified Allergy, Mild, RASH, SILK TAPE, PLASTIC TAPE, 02/10/18) Medications Scheduled Calcium Carbonate (Tums) 200 Mg Tab.chew, 2 TAB PO QID Fluoxetine HCl (Prozac) 40 Mg Capsule, 40 MG PO QAM Propranolol Hcl (Propranolol HCl) 60 Mg Tablet, 20 MG PO DAILY Scheduled PRN Acetaminophen (Mapap) 500 Mg Tablet, 1,000 MG PO Q6HP PRN for PAIN OR FEVER Miscellaneous Medications Tpl351/Iron Fum/Folic/Docusate ( 19 Tablet) 1 Tab Tab, 1 TAB PO Physical Examination Physical Examination GENERAL: Alert and oriented times three. ABDOMEN: Gravid and non-tender to touch. FETUS: Is vertex (VTX) by sterile vaginal examination (SVE) EXTREMITIES: No edema BLE Vital Signs/I&O Vital Signs Date Time Temp Pulse Resp B/P (MAP) Pulse Ox O2 Delivery O2 Flow Rate FiO2 08/13/20 02:08 97.5 89 18 105/56 (72) Laboratory Data 24H LABS Laboratory Tests 2 08/12/20 23:57: Serology Scanned Report Hepatitis B Testing 08/13/20 00:22: Nucleated Red Blood Cells % (auto) 0.0 CBC/BMP Laboratory Tests 08/13/20 00:22 Pertinent Laboratoy Data Blood Type: A+ RBC Antibody Screen: Negative HIV: Negative Hepatitis B: Negative Hepatitis C: Negative Rapid Plasma Reagin: Nonreactive Rubella: Immune Chlamydia/Gonorrhea: Negative Group B Streptococcus: Negative Glucose Tolerance Test: 157 (89/184/153/102) Anatomy Ultrasound Ultrasound Date: Apr 22, 2020 Placenta Location: Posterior Normal Anatomy: Yes Placenta Previa: No Steroid Therapy Steroid Therapy: Yes (07/01) Vaginal Examination Dilation: 6 cm Effacement: 80% Station: -2 Cervical Consistency: Soft Cervical Position: Posterior Presentation: Cephalic presentation Assessment Heart Rate (FHR): 130 Variability: Moderate Accelerations: Positive Decelerations: None Tocometer Contractions: Yes Frequency: regular, every 3-7 min. Duration: greater than 60 seconds Strength: palpated as moderate Assessment/Plan Assessment Mirtha is a 35yo with SIUP at 37w3d by 8wk u/s presenting in active labor with SCE 6/75/-2, ctx q3-5min. AROM performed after epidural received and patient progressed within an hour to delivery. Vitals wnl, benign exam. Cephalic presentation. Cat I FHRT. Patient desires another TOLAC after prior counseling, has had successful x2. PMhx/PNC significant for: AMA, history of pre-term labor/deliveries at 34/35/36 weeks, history of prior section followed by x2 (desiring TOLAC), symptomatic ctx throughout taking prn nifedipine, history of pre-e clampsia in prior (taking ASA 81mg), UTI first trimester, threatened PTL this (made beta complete 07/01), failed 1hr glucola but passed 3hr GTT, anemia, plt 150, obesity, PCOS, occasional heart palpitations, microadenoma Plan Admit and orient. Food And Beverage Analyst and consent. Diet: clear liquids Group B Streptococcus (GBS) negative Labs and intravenous (IV) per unit protocol. Lactated Ringers (LR): Bolus 800 mL, then at 125 mL/hr. Anticipate normal spontaneous delivery () Candidate for epidural if desired MD Fide Pascual Katrina D MD Aug 13, 2020 03:35
--- NOTE | 2020-08-13 04:14 | DNPDOC ---
[facility] Delivery Note Delivery Note DATE OF DELIVERY: 08/13/20 PREDELIVERY DIAGNOSIS: 37w3d gestation and labor. POST DELIVERY DIAGNOSIS: Delivered. PROCEDURE: Spontaneous vaginal delivery PLOW MECHANIC: Dr. Jessica Elizalde MD ANESTHESIA: epidural ESTIMATED BLOOD LOSS: 300 mL. FINDINGS: 8 pound 0 ounce (3630g) male infant, Score 8/9 DELIVERY SUMMARY: Mirtha is a 35yo [id number] s/p uncomplicated at 37w3d after presenting in active labor, delivering at 0310 on 08/13. She received an epidural and then she had AROM, clear. In 30 minutes, she was C/C/0 and within a few sets of pushes, f etal head delivered OA and restituted MARYCRUZ. Right anterior shoulder delivered followed by posterior shoulder and corpus. Infant placed on maternal abdomen and had lusty cry, apgars 8/9. Nose and mouth suctioned with bulb suction. After two minutes, cord clamped x2 and cut. With fundal massage and traction on the cord, placenta delivered spontaneously and intact with 3 vessel centrally inserted umbilical cord. More uterine massage performed, IV pitocin bolus given, and fundus firmed to u-2cm. Hemostasis noted. Inspection of perineum and vagina revealed no lacerations or abrasions. Another fundal massage elicited small gush of blood, so patient given 0.2mg IM methergine x1 and had no further bleeding. All counts correct x2. Mom and infant were doing well when I left the room. MD Fide Pascual Katrina D MD Aug 13, 2020 04:14
[2020-08-13] MEDS ORDERED: METAL LOCK LOOP XX ONE (06:48)
[2020-08-13] MEDS: IBUPROFEN 800 MG TAB PO PRN ×2 (07:59→15:53)
[2020-08-13] MEDS: PRENATAL VITAMINS CHEWABLE TABLET PO SCH (07:59)
[2020-08-13] MEDS: PERCOCET 5MG/325MG TAB PO PRN ×2 (11:26→18:42)
[2020-08-14] MEDS: PERCOCET 5MG/325MG TAB PO PRN ×2 (03:11→08:52)
[2020-08-14] MEDS: IBUPROFEN 800 MG TAB PO PRN ×2 (03:12→12:39)
[2020-08-14 05:43] VITALS: BP 122/57
[2020-08-14] MEDS ORDERED: PERCOCET PO (08:14)
[2020-08-14] MEDS ORDERED: IBUP80TA PO (08:14)
[2020-08-14] MEDS: PRENATAL VITAMINS CHEWABLE TABLET PO SCH (08:52)
== END 2020-08-14 13:45 | disposition home or self-care (01) | DRG 807 ==
LOC: M LDO 22:48 → M LDI 23:48 → M OBS 08-13 06:07
PROVIDERS: ADMIT Obstetrics & Gynecology; ATTEND Obstetrics & Gynecology
PROC: 10907ZC Drainage of Amniotic Fluid, Therapeutic from Products of Conception, Via Natural or Artificial Opening (ICD-10-PCS; 2020-08-12)
PROC: 10E0XZZ Delivery of Products of Conception, External Approach (ICD-10-PCS; principal; 2020-08-13)
DX: O34.211 Maternal care for low transverse scar from previous cesarean delivery (principal); Z37.0 Single live birth; Z3A.37 37 weeks gestation of pregnancy; O99.214 Obesity complicating childbirth; E66.9 Obesity, unspecified

== ENCOUNTER → 2021-03-16 | Outpatient (CLI) | payer OTHER ==
[~2021-03-16] MED LIST changes: +IBUP80TA PO; +PERCOCET PO
--- NOTE | 2021-03-16 16:32 | REPVR ---
PROCEDURE INFORMATION: Exam: MR Cervical Spine Without Contrast Exam date and time: 03/16/2021 8:58 AM Age: 35 years old Clinical indication: Neck pain; Additional info: Numbness, cervigalgia TECHNIQUE: Imaging protocol: Multiplanar magnetic resonance images of the cervical spine without contrast. COMPARISON: MRI-Brain W/O FOLL BY WITH 10/21/2015 4:20 PM FINDINGS: Cervical vertebral body heights are intact. Cervical lordosis is maintained. The dens is intact. Disc space heights are unremarkable. No abnormal marrow signal. No cord compression, expansion, or abnormal cord signal. Visualized structures of the posterior fossa are unremarkable. No significant areas of canal or foraminal narrowing. Soft tissues are unremarkable. IMPRESSION: No acute findings in the cervical spine. Electronically signed by: Calvin Gallegos On 03/16/2021 16:32:24 PM
== END ==
LOC: M PLAIMG 07:41
PROVIDERS: ATTEND Family Medicine
DX: R20.0 Anesthesia of skin (principal); M54.2 Cervicalgia

== ENCOUNTER → 2021-06-22 | Outpatient (REF) | payer OTHER | LOC: M LAB REF 11:28 | PROVIDERS: ATTEND Physician Assistant | DX: U07.1 COVID-19 (principal); J06.9 Acute upper respiratory infection, unspecified ==

== ENCOUNTER → 2021-07-29 | Outpatient (CLI) | payer OTHER ==
[2021-07-29 17:37] LABS: ALBUMIN 3.9 GM/DL (3.2-5.2); ALT/SGPT 27 U/L (12-78); BILIRUBIN,TOTAL 0.4 MG/DL (0.2-1.0); BLOOD UREA NITROGEN 9 MG/DL (7-18); CALCIUM LEVEL 8.9 MG/DL (8.5-10.1); CARBON DIOXIDE LEVEL 26 MEQ/L (21-32); CHLORIDE LEVEL 107 MEQ/L (98-107); CREATININE FOR GFR 0.76 MG/DL (0.55-1.30); FERRITIN 13 NG/ML (8-252); GLOMERULAR FILTRATION RATE > 60.0 (>60); GLUCOSE, FASTING 105 MG/DL (70-100); IRON (FE) 39 UG/DL (50-170); PERCENT SATURATION 11.9 % (13.2-45.0); PHOSPHORUS LEVEL 3.2 MG/DL (2.5-4.9); POTASSIUM SERUM 3.6 MEQ/L (3.5-5.1); SODIUM LEVEL 140 MEQ/L (136-145); TOTAL IRON BINDING CAPACITY 329 UG/DL (250-450); TOTAL PROTEIN 7.1 GM/DL (6.4-8.2)
[2021-07-29 17:47] LABS: TOTAL 25(OH) VITAMIN D 23.1 NG/ML (30.0-100.0); VITAMIN B12 LEVEL 232 PG/ML (247-911)
[2021-07-29 17:48] LABS: BASO % 0.3 % (0.0-1.0); EOS # 0.1 10^3/uL (0.0-0.5); EOS % 1.6 % (0.0-3.0); FOLATE 12.5 NG/ML (>5.4); HEMATOCRIT 37.3 % (36.0-47.0); HEMOGLOBIN 12.2 g/dl (12.0-15.5); LYMPH # 2.6 10^3/uL (1.5-5.0); LYMPH % 29.7 % (24.0-44.0); MEAN CORPUSCULAR HEMOGLOBIN 28.8 pg (27.0-33.0); MEAN CORPUSCULAR HGB CONC 32.7 g/dl (32.0-36.5); MEAN CORPUSCULAR VOLUME 88.2 fl (80.0-96.0); MONO # 0.3 10^3/uL (0.0-0.8); MONO % 3.9 % (2.0-8.0); NEUTROPHILS # 5.5 10^3/uL (1.5-8.5); NEUTROPHILS % 64.2 % (36.0-66.0); PLATELET COUNT, AUTOMATED 217 10^3/uL (150-450); RED BLOOD COUNT 4.23 10^6/uL (4.00-5.40); WHITE BLOOD COUNT 8.6 10^3/uL (4.0-10.0)
[2021-07-29 18:36] LABS: HEMOGLOBIN A1c 4.9 %
== END ==
LOC: M LAB 15:52
PROVIDERS: ATTEND Physician Assistant Surgical
DX: K91.2 Postsurgical malabsorption, not elsewhere classified (principal); Z98.84 Bariatric surgery status; E55.9 Vitamin D deficiency, unspecified; Z86.39 Personal history of other endocrine, nutritional and metabolic disease

== ENCOUNTER → 2021-08-01 | Outpatient (CLI) | payer OTHER ==
[~2021-08-01] MED LIST changes: +PROHANCE 279.3MG/ML 15ML VIAL As Ordered ONE; +PROHANCE 279.3MG/ML 5ML VIAL As Ordered ONE
--- NOTE | 2021-08-01 18:06 | REPVR ---
PROCEDURE INFORMATION: Exam: MR Lumbar Spine Without Contrast Exam date and time: 08/01/2021 5:33 PM Age: 36 years old Clinical indication: Left foot drop TECHNIQUE: Imaging protocol: Multiplanar magnetic resonance images of the lumbar spine without intravenous contrast. COMPARISON: US BPP W/O NON STRESS TEST 07/01/2020 3:25 PM FINDINGS: No abnormal marrow signal. Lumbar vertebral body heights are maintained. No cord compression. No abnormal cord signal. Conus medullaris terminates at the L1 level. Disc space heights are preserved. No significant areas of canal or foraminal narrowing in the lumbar spine. Paravertebral soft tissues are unremarkable. IMPRESSION: No acute findings in the lumbar spine. Electronically signed by: Calvin Gallegos On 08/01/2021 18:06:09 PM
--- NOTE | 2021-08-01 18:08 | REPVR ---
PROCEDURE INFORMATION: Exam: MR Head Without and With Contrast Exam date and time: 08/01/2021 5:33 PM Age: 36 years old Clinical indication: Left foot drop TECHNIQUE: Imaging protocol: MR of the head without and with intravenous contrast. Contrast material: PROHANCE; Contrast volume: 16 ml; Contrast route: INTRAVENOUS (IV); COMPARISON: MRI-Brain W/O FOLL BY WITH 10/21/2015 4:20 PM FINDINGS: Brain: No intracranial hemorrhage or extra-axial fluid collection. No evidence of mass effect or midline shift. No white matter abnormalities. No restricted diffusion to suggest acute infarct. No abnormal intracranial enhancement. Cerebral ventricles: Ventricles, cisterns, and sulci are normal. Bones/joints: Unremarkable. Paranasal sinuses: Normal as visualized. No acute sinusitis. Mastoid air cells: No mastoid effusion. Orbital cavity: Unremarkable. Soft tissues: Unremarkable. IMPRESSION: No acute intracranial findings. Electronically signed by: Calvin Gallegos On 08/01/2021 18:08:01 PM
== END ==
LOC: M RAD 16:01
PROVIDERS: ATTEND Family Medicine
DX: M21.372 Foot drop, left foot (principal)
CPT/HCPCS: 70553; 72148; A9576

== ENCOUNTER → 2021-08-12 | Outpatient (CLI) | payer OTHER ==
[~2021-08-12] MED LIST changes: -PROHANCE 279.3MG/ML 15ML VIAL As Ordered ONE; -PROHANCE 279.3MG/ML 5ML VIAL As Ordered ONE
[2021-08-12 13:40] LABS: FREE T4 0.86 NG/DL (0.76-1.46); FREE THYROXINE INDEX 2.4 % (1.3-4.8); RHEUMATOID FACTOR QUANT < 10.0 IU/ML (<15.0); T UPTAKE 30 % (30-39); TOTAL PROTEIN 7.6 GM/DL (6.4-8.2)
[2021-08-12 13:48] LABS: HEMOGLOBIN A1c 4.9 %
[2021-08-12 13:55] LABS: DRVV SCREEN 42.2 SEC
[2021-08-12 13:56] LABS: PTT LUPUS TYPE ANTICOAG SCREEN 1.1 (0-1.2)
[2021-08-13 16:08] LABS: ANTINUCLEAR ANTIBODIES DIRECT Negative (Negative); Lyme Disease IgG/IgM Antibodie <0.91 ISR (0.00-0.90); Lyme Disease IgM Ab Quantitati <0.80 index (0.00-0.79)
[2021-08-15 14:21] LABS: ALBUMIN 4.51 GM/DL (3.29-5.55); ALBUMIN % 59.3 % (55.8-66.1); ALPHA-1-GLOBULIN % 4.8 % (2.9-4.9); ALPHA-1-GLOBULINS 0.36 GM/DL (0.17-0.41); ALPHA-2-GLOBULINS 0.72 GM/DL (0.42-0.99); ALPHA-2-GLOBULINS % 9.5 % (7.1-11.8); BETA-1-GLOBULINS 0.45 GM/DL (0.28-0.60); BETA-1-GLOBULINS % 5.9 % (4.7-7.2); BETA-2-GLOBULINS 0.39 GM/DL (0.19-0.55); BETA-2-GLOBULINS % 5.1 % (3.2-6.5); GAMMA GLOBULIN % 15.4 % (11.1-18.8); GAMMA GLOBULINS 1.17 GM/DL (0.65-1.58)
== END ==
LOC: M LAB 12:11
PROVIDERS: ATTEND Psychiatry & Neurology Neurology
DX: G62.9 Polyneuropathy, unspecified (principal)

== ENCOUNTER 2021-09-02 10:05 | Outpatient (CLI) | payer OTHER ==
[~2021-09-02] VITALS: Ht 172.7 cm; Wt 77.3 kg
[2021-09-02 10:20] VITALS: BP 134/72
[2021-09-02] MEDS ORDERED: IRON SUCROSE 500 MG in NS 250 ML IV ONE (10:30)
[2021-09-02 11:20] VITALS: BP 111/61
[2021-09-02 12:20] VITALS: BP_SYST 115; BP_SYST 117; BP_DIAS 60; BP_DIAS 68
[2021-09-02 13:20] VITALS: BP 117/68
[2021-09-02] MEDS ORDERED: ONDANSETRON 4MG/2ML VIAL IV ONE (14:10)
[2021-09-02 14:14] VITALS: BP 113/67
== END 2021-09-02 14:10 | disposition home or self-care (01) ==
LOC: M INFU 10:05
PROVIDERS: ATTEND Family Medicine
DX: D50.9 Iron deficiency anemia, unspecified (principal); Z91.048 Other nonmedicinal substance allergy status
CPT/HCPCS: 96365; 96366; J1756; J2405

== ENCOUNTER → 2022-03-13 | Outpatient (CLI) | payer OTHER ==
[2022-03-13 10:12] LABS: BASO % 0.4 % (0.0-1.0); EOS # 0.1 10^3/uL (0.0-0.5); EOS % 1.4 % (0.0-3.0); HEMATOCRIT 41.2 % (36.0-47.0); HEMOGLOBIN 13.5 g/dl (12.0-15.5); LYMPH # 1.8 10^3/uL (1.5-5.0); LYMPH % 35.4 % (24.0-44.0); MEAN CORPUSCULAR HEMOGLOBIN 30.1 pg (27.0-33.0); MEAN CORPUSCULAR HGB CONC 32.8 g/dl (32.0-36.5); MONO # 0.2 10^3/uL (0.0-0.8); MONO % 4.3 % (2.0-8.0); NEUTROPHILS % 58.3 % (36.0-66.0); PLATELET COUNT, AUTOMATED 236 10^3/uL (150-450); RED BLOOD COUNT 4.48 10^6/uL (4.00-5.40); WHITE BLOOD COUNT 5.2 10^3/uL (4.0-10.0)
[2022-03-13 11:03] LABS: ALBUMIN 4.1 GM/DL (3.2-5.2); ALT/SGPT 19 U/L (12-78); BILIRUBIN,TOTAL 0.5 MG/DL (0.2-1.0); BLOOD UREA NITROGEN 15 MG/DL (7-18); CALCIUM LEVEL 9.2 MG/DL (8.5-10.1); CARBON DIOXIDE LEVEL 28 MEQ/L (21-32); CHLORIDE LEVEL 109 MEQ/L (98-107); CHOLESTEROL LEVEL 135 MG/DL (<200); CHOLESTEROL RISK RATIO 2.454 (<5); CREATININE FOR GFR 0.74 MG/DL (0.55-1.30); FERRITIN 11 NG/ML (8-252); FREE T4 0.75 NG/DL (0.76-1.46); GLOMERULAR FILTRATION RATE > 60.0 (>60); GLUCOSE, FASTING 81 MG/DL (70-100); HDL CHOLESTEROL 55 MG/DL (>40); LDL CHOLESTEROL 58 MG/DL (<100); NON-HDL-C 80 MG/DL; POTASSIUM SERUM 4.1 MEQ/L (3.5-5.1); SODIUM LEVEL 142 MEQ/L (136-145); TOTAL PROTEIN 7.3 GM/DL (6.4-8.2); TRIGLYCERIDES LEVEL 112 MG/DL (<150)
[2022-03-13 12:12] LABS: VITAMIN B12 LEVEL 359 PG/ML (247-911)
== END ==
LOC: M LAB 09:43
PROVIDERS: ATTEND Family Medicine
DX: D51.8 Other vitamin B12 deficiency anemias (principal); E55.9 Vitamin D deficiency, unspecified; D50.9 Iron deficiency anemia, unspecified; Z98.84 Bariatric surgery status

== ENCOUNTER → 2022-05-23 | Outpatient (CLI) | payer OTHER ==
[2022-05-23 14:39] LABS: BASO % 0.4 % (0.0-1.0); EOS # 0.1 10^3/uL (0.0-0.5); EOS % 1.4 % (0.0-3.0); HEMATOCRIT 43.4 % (36.0-47.0); HEMOGLOBIN 14.3 g/dl (12.0-15.5); LYMPH # 1.5 10^3/uL (1.5-5.0); LYMPH % 27.2 % (24.0-44.0); MEAN CORPUSCULAR HEMOGLOBIN 30.6 pg (27.0-33.0); MEAN CORPUSCULAR HGB CONC 32.9 g/dl (32.0-36.5); MEAN CORPUSCULAR VOLUME 92.7 fl (80.0-96.0); MONO # 0.3 10^3/uL (0.0-0.8); MONO % 5.7 % (2.0-8.0); NEUTROPHILS # 3.6 10^3/uL (1.5-8.5); NEUTROPHILS % 64.9 % (36.0-66.0); PLATELET COUNT, AUTOMATED 218 10^3/uL (150-450); RED BLOOD COUNT 4.68 10^6/uL (4.00-5.40); WHITE BLOOD COUNT 5.6 10^3/uL (4.0-10.0)
[2022-05-23 15:27] LABS: PERCENT SATURATION 17.5 % (13.2-45.0)
== END ==
LOC: M LAB 14:07
PROVIDERS: ATTEND Family Medicine
DX: N92.1 Excessive and frequent menstruation with irregular cycle (principal)

== ENCOUNTER → 2022-06-02 | Outpatient (CLI) | payer OTHER ==
[~2022-06-02] MED LIST changes: +HYDR-3713 PO; +SULF1TAB23 PO
== END ==
LOC: M WHC 11:53
PROVIDERS: ATTEND Family Medicine
DX: N92.1 Excessive and frequent menstruation with irregular cycle (principal); R93.89 Abnormal findings on diagnostic imaging of other specified body structures

== ENCOUNTER 2022-06-03 18:57 | Emergency (ER) | payer OTHER ==
[~2022-06-03] VITALS: Ht 172.7 cm; Wt 75.5 kg
[~2022-06-03 18:57] MED LIST changes: -HYDR-3713 PO; -SULF1TAB23 PO
[2022-06-03] MEDS ORDERED: NS 1,000 ML IV ONE (19:40)
[2022-06-03] MEDS ORDERED: ONDANSETRON 4MG 2ML VIAL IV ONE (19:40)
[2022-06-03 20:00] LABS: BASO % 0.4 % (0.0-1.0); EOS # 0.1 10^3/uL (0.0-0.5); EOS % 0.6 % (0.0-3.0); HEMATOCRIT 36.7 % (36.0-47.0); HEMOGLOBIN 12.4 g/dl (12.0-15.5); LYMPH # 2.4 10^3/uL (1.5-5.0); MEAN CORPUSCULAR HEMOGLOBIN 30.6 pg (27.0-33.0); MEAN CORPUSCULAR HGB CONC 33.8 g/dl (32.0-36.5); MEAN CORPUSCULAR VOLUME 90.6 fl (80.0-96.0); MONO # 0.4 10^3/uL (0.0-0.8); MONO % 5.2 % (2.0-8.0); NEUTROPHILS % 63.5 % (36.0-66.0); PLATELET COUNT, AUTOMATED 208 10^3/uL (150-450); RED BLOOD COUNT 4.05 10^6/uL (4.00-5.40); WHITE BLOOD COUNT 7.9 10^3/uL (4.0-10.0)
[2022-06-03 20:39] LABS: ALBUMIN 3.7 GM/DL (3.2-5.2); BILIRUBIN,DIRECT 0.1 MG/DL (0.0-0.2); BILIRUBIN,TOTAL 0.3 MG/DL (0.2-1.0)
[2022-06-03] MEDS ORDERED: KETOROLAC 30 MG/ML 1ML VIAL IV ONE (21:00)
[2022-06-03] MEDS ORDERED: ACETAMINOPHEN 325 MG TAB PO ONE (21:30)
[2022-06-03] MEDS ORDERED: NORCO 5/325MG TABLET (HOME DOSE PACK) PO ONE (22:10)
[2022-06-03] MEDS ORDERED: HYDR-3713 PO (22:10)
[2022-06-03] MEDS ORDERED: SULF1TAB23 PO (22:10)
[2022-06-03 22:17] VITALS: BP 131/71
[2022-06-03] MEDS ORDERED: BACTRIM 160MG/800MG DS TAB PO ONE (23:00)
== END 2022-06-03 22:34 | disposition home or self-care (01) ==
LOC: M ED 18:57
DX: N30.90 Cystitis, unspecified without hematuria (principal); R06.02 Shortness of breath; K76.89 Other specified diseases of liver; K21.9 Gastro-esophageal reflux disease without esophagitis; E83.119 Hemochromatosis, unspecified; Z90.49 Acquired absence of other specified parts of digestive tract; Z91.048 Other nonmedicinal substance allergy status; Z98.84 Bariatric surgery status; Z79.899 Other long term (current) drug therapy
CPT/HCPCS: 74176; 80047; 80076; 81000; 83690; 84702; 85025; 87086; 96361; 96374; 96375; 99284; J1885; J2405

== ENCOUNTER → 2022-06-05 | Outpatient (REF) | payer OTHER ==
[~2022-06-05] MED LIST changes: +HYDR-3713 PO; +SULF1TAB23 PO
== END ==
LOC: M LAB REF 17:08
PROVIDERS: ATTEND Family Medicine
DX: N39.0 Urinary tract infection, site not specified (principal)

== ENCOUNTER → 2022-07-04 | Outpatient (REF) | payer OTHER | LOC: M PLALAB 15:16 | PROVIDERS: ATTEND Obstetrics & Gynecology | DX: Z12.4 Encounter for screening for malignant neoplasm of cervix (principal) | CPT/HCPCS: 87624; G0123 ==

== ENCOUNTER → 2022-09-29 | Outpatient (CLI) | payer OTHER ==
[2022-09-29 15:37] LABS: BASO % 0.6 % (0.0-1.0); EOS # 0.1 10^3/uL (0.0-0.5); EOS % 0.7 % (0.0-3.0); HEMATOCRIT 40.5 % (36.0-47.0); LYMPH # 1.6 10^3/uL (1.5-5.0); LYMPH % 22.1 % (24.0-44.0); MEAN CORPUSCULAR HGB CONC 32.1 g/dl (32.0-36.5); MEAN CORPUSCULAR VOLUME 90.4 fl (80.0-96.0); MONO # 0.3 10^3/uL (0.0-0.8); MONO % 4.1 % (2.0-8.0); NEUTROPHILS # 5.1 10^3/uL (1.5-8.5); NEUTROPHILS % 72.2 % (36.0-66.0); PLATELET COUNT, AUTOMATED 225 10^3/uL (150-450); RED BLOOD COUNT 4.48 10^6/uL (4.00-5.40)
[2022-09-29 16:07] LABS: IRON (FE) 36 UG/DL (50-170); PERCENT SATURATION 9.4 % (13.2-45.0); TOTAL IRON BINDING CAPACITY 385 UG/DL (250-425)
[2022-09-29 16:13] LABS: ALBUMIN 4.2 G/DL (3.2-5.2); ALKALINE PHOSPHATASE 88 U/L (46-116); ALT/SGPT 10 U/L (7.0-40); AST/SGOT 19 U/L (<34); BILIRUBIN,TOTAL 0.3 MG/DL (0.3-1.2); BLOOD UREA NITROGEN 12 MG/DL (9-23); CALCIUM LEVEL 9.1 MG/DL (8.5-10.1); CARBON DIOXIDE LEVEL 22 MMOL/L (20-31); CHLORIDE LEVEL 105 MMOL/L (98-107); CREATININE FOR GFR 0.72 MG/DL (0.55-1.30); FERRITIN 5.3 NG/ML (7.3-270.7); FREE T4 0.89 NG/DL (0.89-1.76); GLOMERULAR FILTRATION RATE > 60.0 (>60); GLUCOSE, FASTING 96 MG/DL (60-100); POTASSIUM SERUM 3.9 MMOL/L (3.5-5.1); SODIUM LEVEL 138 MMOL/L (136-145); THYROID STIMULATING HORMONE 1.389 uIU/ML (0.55-4.78); TOTAL 25(OH) VITAMIN D 24.1 NG/ML (20.0-100.0); TOTAL PROTEIN 7.5 G/DL (5.7-8.2); VITAMIN B12 LEVEL 310 PG/ML (211-911)
[2022-09-29 16:14] LABS: FOLATE 19.02 NG/ML (>5.4)
== END ==
LOC: M PLALAB 12:25
PROVIDERS: ATTEND Physician Assistant
DX: D51.8 Other vitamin B12 deficiency anemias (principal); E55.9 Vitamin D deficiency, unspecified; D50.9 Iron deficiency anemia, unspecified

== ENCOUNTER 2022-10-18 08:09 | Outpatient (CLI) | payer OTHER ==
[~2022-10-18] VITALS: Ht 172.7 cm; Wt 70.5 kg
[~2022-10-18 08:09] MED LIST changes: +IRON SUCROSE 500 MG in NS 250 ML OVER 4 HRS IV ONE
[2022-10-18 08:25] VITALS: BP 120/66
[2022-10-18] MEDS ORDERED: IRON SUCROSE 500 MG in NS 250 ML OVER 4 HRS IV ONE (08:30)
[2022-10-18] MEDS ORDERED: VITA100093 PO (09:19)
[2022-10-18] MEDS ORDERED: THERTAB52 PO (09:19)
[2022-10-18] MEDS ORDERED: B-12100010 PO (09:19)
[2022-10-18 10:05] VITALS: BP 124/62
[2022-10-18 11:30] VITALS: BP 120/62
[2022-10-18 12:00] VITALS: BP 104/59
[2022-10-18 13:20] VITALS: BP 116/65
[2022-10-18] MEDS ORDERED: ONDANSETRON 4MG ORAL DISINTEGRATING TAB SL ONE (14:20)
[2022-10-18 15:00] VITALS: BP 119/68
== END 2022-10-18 15:00 | disposition home or self-care (01) ==
LOC: M INFU 08:09
PROVIDERS: ATTEND Physician Assistant
DX: D50.9 Iron deficiency anemia, unspecified (principal)
CPT/HCPCS: 96365; 96366; J1756

== ENCOUNTER → 2022-11-01 | Outpatient (CLI) | payer OTHER ==
[~2022-11-01] MED LIST changes: +B-12100010 PO; +FLUO40CA PO; -IRON SUCROSE 500 MG in NS 250 ML OVER 4 HRS IV ONE; +THERTAB52 PO; +VITA100093 PO
== END ==
LOC: M LABSMTC 09:43
PROVIDERS: ATTEND Anesthesiology
DX: Z01.818 Encounter for other preprocedural examination (principal)

== ENCOUNTER 2022-11-06 10:42 | Observation (INO) | payer OTHER ==
[2022-11-06] VITALS (7 sets, daily range): BP systolic 102–120; BP diastolic 56–72
[~2022-11-06] VITALS: Ht 172.7 cm; Wt 73.2 kg
[~2022-11-06 10:42] MED LIST changes: +ceFAZolin SOD 2 GM in IV 1 EA IV ONE
[2022-11-06] MEDS ORDERED: ONDANSETRON 4MG 2ML VIAL As Ordered ONE (10:50)
[2022-11-06] MEDS ORDERED: propofoL 200 MG/20 ML VIAL As Ordered ONE (10:50)
[2022-11-06] MEDS ORDERED: ROCURONIUM BROMIDE 50MG/5ML VIAL As Ordered ONE ×2 (10:50→13:59)
[2022-11-06] MEDS ORDERED: fentaNYL 100 MCG/2 ML INJECTION As Ordered ONE ×2 (10:50→13:43)
[2022-11-06] MEDS ORDERED: MIDAZOLAM INJ 2MG/2ML VIAL As Ordered ONE (10:50)
[2022-11-06] MEDS ORDERED: LIDOCAINE 2% 100MG/5ML SDV (FOR ANES.) As Ordered ONE (10:50)
[2022-11-06 11:48] LABS: HEMATOCRIT 39.6 % (36.0-47.0); HEMOGLOBIN 12.8 g/dl (12.0-15.5); MEAN CORPUSCULAR HEMOGLOBIN 29.6 pg (27.0-33.0); MEAN CORPUSCULAR HGB CONC 32.3 g/dl (32.0-36.5); MEAN CORPUSCULAR VOLUME 91.5 fl (80.0-96.0); PLATELET COUNT, AUTOMATED 199 10^3/uL (150-450); RED BLOOD COUNT 4.33 10^6/uL (4.00-5.40); WHITE BLOOD COUNT 5.4 10^3/uL (4.0-10.0)
[2022-11-06] MEDS ORDERED: METHYLENE BLUE 0.5% (5MG/ML) 10 ML AMP (PROVAYBLUE) As Ordered ONE (12:58)
[2022-11-06] MEDS ORDERED: BUPIVACAINE HCL 0.25% 30ML VIAL As Ordered ONE (12:58)
[2022-11-06] MEDS ORDERED: ACETAMINOPHEN 1000MG 100ML IV BAG As Ordered ONE (13:00)
[2022-11-06] MEDS ORDERED: SUGAMMADEX SODIUM 500 MG/5 ML VIAL (BRIDION) As Ordered ONE (13:50)
[2022-11-06] MEDS ORDERED: METOCLOPRAMIDE INJ 10MG/2ML VIAL As Ordered ONE (13:53)
[2022-11-06] MEDS ORDERED: KETOROLAC 60MG 2ML VIAL As Ordered ONE (13:53)
[2022-11-06] MEDS ORDERED: ePHEDrine SULFATE 25 MG/5 ML(5MG/ML) SYRINGE As Ordered ONE (13:54)
[2022-11-06] MEDS ORDERED: PERCOCET 5MG/325MG TAB PO PRN ×2 (15:00)
[2022-11-06] MEDS ORDERED: ONDANSETRON 4MG 2ML VIAL IV PRN ×2 (15:00→15:05)
[2022-11-06] MEDS ORDERED: MORPHINE 2 MG/ML 1ML VIAL IV PRN (15:00)
[2022-11-06] MEDS ORDERED: LR 1,000 ML IV SCH (15:05)
[2022-11-06] MEDS ORDERED: oxyCODONE 5MG TAB PO PRN (15:05)
[2022-11-06] MEDS ORDERED: fentaNYL 100 MCG/2 ML INJECTION IV PRN (15:05)
[2022-11-06] MEDS ORDERED: METOCLOPRAMIDE INJ 10MG/2ML VIAL IV PRN (15:05)
[2022-11-06] MEDS: HYDROMORPHONE HCL 0.5 MG/ 0.5 ML SYRINGE IV PRN ×2 (15:40→15:54)
[2022-11-06] MEDS ORDERED: COLA100C5 PO (15:49)
[2022-11-06] MEDS ORDERED: PERCOCET PO (15:49)
[2022-11-06] MEDS ORDERED: IBUP80TA PO (15:49)
[2022-11-06] MEDS: KETOROLAC 30 MG/ML 1ML VIAL IV SCH (20:14)
[2022-11-06] MEDS: DOCUSATE SODIUM 100MG CAPSULE PO SCH (20:15)
[2022-11-06] MEDS: LR 1,000 ML IV SCH (20:52)
[2022-11-07] MEDS: KETOROLAC 30 MG/ML 1ML VIAL IV SCH ×2 (03:51→08:30)
[2022-11-07] MEDS: LR 1,000 ML IV SCH (05:02)
[2022-11-07 06:00] VITALS: BP 110/63
[2022-11-07] MEDS: DOCUSATE SODIUM 100MG CAPSULE PO SCH (08:30)
[2022-11-07 10:00] VITALS: BP 108/78
[2022-11-07] MEDS ORDERED: IBUPROFEN 800 MG TAB PO SCH (17:00)
== END 2022-11-07 14:30 | disposition home or self-care (01) ==
LOC: M SDC 10:42 → M MSPAV 16:05
PROVIDERS: ADMIT Obstetrics & Gynecology; ATTEND Obstetrics & Gynecology
DX: N93.9 Abnormal uterine and vaginal bleeding, unspecified (principal); D25.9 Leiomyoma of uterus, unspecified; D50.9 Iron deficiency anemia, unspecified; K21.9 Gastro-esophageal reflux disease without esophagitis; Z98.84 Bariatric surgery status; G43.909 Migraine, unspecified, not intractable, without status migrainosus; F41.9 Anxiety disorder, unspecified
CPT/HCPCS: 36415; 58571; 81025; 85027; 86850; 86900; 86901; 88307; 96361; 96374; 96376; J0131; J0690; J1100; J1170; J1885; J2250; J2405; J2765; J3010; Q9968; S0020; S2900

== ENCOUNTER → 2023-03-08 | Outpatient (CLI) | payer OTHER ==
[~2023-03-08] MED LIST changes: +COLA100C5 PO; -ceFAZolin SOD 2 GM in IV 1 EA IV ONE
[2023-03-08 10:20] LABS: HEMATOCRIT 40.7 % (36.0-47.0)
[2023-03-08 10:21] LABS: BASO % 0.6 % (0.0-1.0); EOS % 0.6 % (0.0-3.0); HEMATOCRIT 42.5 % (36.0-47.0); HEMOGLOBIN 13.7 g/dl (12.0-15.5); LYMPH # 1.8 10^3/uL (1.5-5.0); LYMPH % 37.1 % (24.0-44.0); MEAN CORPUSCULAR HGB CONC 32.2 g/dl (32.0-36.5); MONO # 0.2 10^3/uL (0.0-0.8); MONO % 3.9 % (2.0-8.0); NEUTROPHILS # 2.8 10^3/uL (1.5-8.5); NEUTROPHILS % 57.6 % (36.0-66.0); PLATELET COUNT, AUTOMATED 229 10^3/uL (150-450); RED BLOOD COUNT 4.57 10^6/uL (4.00-5.40); WHITE BLOOD COUNT 4.9 10^3/uL (4.0-10.0)
[2023-03-08 10:50] LABS: THYROID STIMULATING HORMONE 1.112 uIU/ML (0.55-4.78)
[2023-03-08 10:51] LABS: FREE T4 0.83 NG/DL (0.89-1.76); TOTAL IRON BINDING CAPACITY 366 UG/DL (250-425)
[2023-03-08 10:52] LABS: ALBUMIN 4.3 G/DL (3.2-5.2); ALKALINE PHOSPHATASE 84 U/L (46-116); ALT/SGPT 14 U/L (7.0-40); AST/SGOT 12 U/L (<34); BILIRUBIN,TOTAL 0.7 MG/DL (0.3-1.2); BLOOD UREA NITROGEN 15 MG/DL (9-23); CARBON DIOXIDE LEVEL 28 MMOL/L (20-31); CHLORIDE LEVEL 104 MMOL/L (98-107); CHOLESTEROL LEVEL 128 MG/DL (<200); CHOLESTEROL RISK RATIO 2.29 (<5); CREATININE FOR GFR 0.67 MG/DL (0.55-1.30); FERRITIN 10.5 NG/ML (7.3-270.7); GLOMERULAR FILTRATION RATE > 60.0 (>60); GLUCOSE, FASTING 83 MG/DL (60-100); HDL CHOLESTEROL 55.8 MG/DL (>40); IRON (FE) 98 UG/DL (50-170); LDL CHOLESTEROL 53.6 MG/DL (<100); NON-HDL-C 72.2 MG/DL; PERCENT SATURATION 26.8 % (13.2-45.0); POTASSIUM SERUM 4.1 MMOL/L (3.5-5.1); SODIUM LEVEL 140 MMOL/L (136-145); TOTAL PROTEIN 7.1 G/DL (5.7-8.2); TRIGLYCERIDES LEVEL 93 MG/DL (<150)
[2023-03-08 10:53] LABS: TOTAL 25(OH) VITAMIN D 18.6 NG/ML (20.0-100.0)
[2023-03-08 10:54] LABS: VITAMIN B12 LEVEL 236 PG/ML (211-911)
[2023-03-08 11:02] LABS: HEMOGLOBIN A1c 4.7 % (4.0-6.0)
== END ==
LOC: M LAB 09:35
PROVIDERS: ATTEND Family Medicine
DX: D51.8 Other vitamin B12 deficiency anemias (principal)

== ENCOUNTER → 2024-02-01 | Outpatient (REF) | payer OTHER | LOC: M LAB REF 17:50 | PROVIDERS: ATTEND Family Medicine | DX: R19.7 Diarrhea, unspecified (principal) ==

== ENCOUNTER 2024-02-19 07:59 | Outpatient (CLI) | payer OTHER ==
[2024-02-19 08:23] VITALS: BP 133/63; O2SAT 100
[2024-02-19] MEDS: IRON SUCROSE 500 MG in NS 250 ML OVER 4 HRS IV ONE (08:46)
[2024-02-19 09:47] VITALS: BP 132/80; O2SAT 100
[2024-02-19 13:05] VITALS: BP 143/71; O2SAT 100
== END 2024-02-19 13:06 ==
LOC: M INFU 07:59
PROVIDERS: ATTEND Family Medicine
DX: D50.9 Iron deficiency anemia, unspecified (principal); Z91.048 Other nonmedicinal substance allergy status
CPT/HCPCS: 96365; 96366; J1756

== ENCOUNTER → 2024-09-25 | Outpatient (CLI) | payer OTHER ==
[~2024-09-25] MED LIST changes: -NIFE10CA2 PO; +NIFE10CA61 PO
== END ==
LOC: M LAB 16:39
PROVIDERS: ATTEND Nurse Practitioner Family
DX: R19.7 Diarrhea, unspecified (principal); R14.1 Gas pain; R14.0 Abdominal distension (gaseous)

== ENCOUNTER → 2025-07-13 | Outpatient (CLI) | payer OTHER ==
[2025-07-13 08:57] LABS: NEUTROPHILS % 67.9 % (36.0-66.0); PLATELET COUNT, AUTOMATED 231 10^3/uL (150-450)
[2025-07-13 08:58] LABS: BASO # 0.0 10^3/uL (0.0-0.2); BASO % 0.3 % (0.0-1.0); EOS # 0.1 10^3/uL (0.0-0.5); EOS % 1.2 % (0.0-3.0); LYMPH # 1.8 10^3/uL (1.5-5.0); LYMPH % 26.8 % (24.0-44.0); MONO # 0.3 10^3/uL (0.0-0.8); MONO % 3.7 % (2.0-8.0); NEUTROPHILS # 4.6 10^3/uL (1.5-8.5)
[2025-07-13 09:15] LABS: IRON (FE) 77 UG/DL (50-170)
[2025-07-13 09:16] LABS: PERCENT SATURATION 22.3 % (13.2-45.0)
[2025-07-13 09:17] LABS: ALT/SGPT 23 U/L (7.0-40); AST/SGOT 22 U/L (<34); CALCIUM LEVEL 9.5 MG/DL (8.5-10.1); CARBON DIOXIDE LEVEL 30 MMOL/L (20-31); CHLORIDE LEVEL 102 MMOL/L (98-107); CREATININE FOR GFR 0.82 MG/DL (0.55-1.30); GLOMERULAR FILTRATION RATE > 90.0 (>58); MAGNESIUM LEVEL 2.2 MG/DL (1.8-2.4); POTASSIUM SERUM 4.2 MMOL/L (3.5-5.1); SODIUM LEVEL 140 MMOL/L (136-145)
[2025-07-13 09:19] LABS: FREE T4 1.15 NG/DL (0.89-1.76)
[2025-07-13 09:20] LABS: TOTAL 25(OH) VITAMIN D 28.5 NG/ML (20.0-100.0)
[2025-07-13 09:24] LABS: VITAMIN B12 LEVEL 396 PG/ML (211-911)
== END ==
LOC: M LAB 07:56
PROVIDERS: ATTEND Physician Assistant
DX: E55.9 Vitamin D deficiency, unspecified (principal); Z98.84 Bariatric surgery status; R53.83 Other fatigue